=== PATIENT | female | born 2000 | race Caucasian/White ===

== ENCOUNTER 2019-07-11 14:42 | Outpatient (REF) | payer MEDICAID, SELFPAY ==
[2019-07-11 15:52] LABS: *AMPHETAMINES SCREEN URINE Negative (Negative); *BARBITURATES SCREEN URINE Negative (Negative); *BENZODIAZEPINES SCREEN URINE Negative (Negative); Cannabinoids THC POSITIVE (Negative); Cocaine Screen,Urine Negative (Negative); METHADONE URINE SCREEN Negative (Negative); OPIATES URINE SCREEN Negative (Negative)
[2019-07-11 15:57] LABS: Tricyclic Antidepressants Negative (Negative)
[2019-07-11 16:38] LABS: Abs Immature Grans 0.01 k/cumm (0.0-0.09); Absolute Basophil Count 0.01 k/cumm (0.0-0.2); Absolute Eosinophil Count 0.03 k/cumm (0.0-0.7); Absolute Lymphocyte Count 2.53 k/cumm (1.2-3.4); Absolute Monocyte Count 0.69 k/cumm (0.11-0.7); Absolute Neutrophil Count 6.18 k/cumm (1.2-6.7); Basophils % 0.1; Eosinophils % 0.3; HCT 38.3 % (36.0-46.0); HGB 13.4 g/dL (12.0-15.5); Immature Grans % 0.1 %; Lymphocytes % 26.8; Mean Corpuscular Hemoglobin 29.8 pg (27.0-33.0); Mean Corpuscular Volume 85.3 fL (80-95); Mean Platelet Volume 11.5 fL (8.0-11.0); Monocytes % 7.3; Neutrophils % 65.4; Platelet Count 235 x1000/uL (130-400); RBC 4.49 m/cumm (4.00-5.20); RBC Distribution Width 12.5 % (11.7-14.6); White Blood Cell Count 9.45 k/cumm (4.4-10.8)
[2019-07-12 10:53] LABS: Hepatitis B Surface Ag Negative (Negative); Hepatitis C Ab w Rflx HCV PCR Negative (Negative)
[2019-07-12 11:06] LABS: HIV-1/2 Ag & Ab Screen Negative (Negative)
[2019-07-12 13:00] LABS: Rubella IgG Ab (UVM) Positive (See Note); Varicella IgG Antibody Positive (See Note)
[2019-07-12 14:26] LABS: Chlamydia Result Negative (Negative); GC Result Negative (Negative)
[2019-07-13 11:02] LABS: Syphilis Total Ab w/Reflex Nonreactive (Nonreactive)
[2019-07-16 07:40] LABS: Buprenorphine Negative; Norbuprenorphine Negative
== END 2019-07-11 15:02 ==
LOC: LBN 14:42
PROVIDERS: Visit Provider Advanced Practice Midwife
DX: Z34.91 Encounter for supervision of normal pregnancy, unspecified, first trimester (principal); Z11.4 Encounter for screening for human immunodeficiency virus [HIV]; Z11.59 Encounter for screening for other viral diseases; Z01.84 Encounter for antibody response examination; Z11.3 Encounter for screening for infections with a predominantly sexual mode of transmission
CPT/HCPCS: 80307; 82950; 86787; 86803; 86850; 86900; 86901; 87077; 87340; 87389; 87491; 87591; 84443; 85025; 86762; 86780; 87086; 87186

== ENCOUNTER 2019-07-11 19:18 | Outpatient (REF) | payer MEDICAID, SELFPAY | END 2019-07-11 19:38 | LOC: LBN 19:18 | PROVIDERS: Visit Provider Advanced Practice Midwife | DX: R69 Illness, unspecified (principal) ==

== ENCOUNTER 2019-07-26 16:18 | Outpatient (REF) | payer MEDICAID, SELFPAY | END 2019-07-26 16:38 | LOC: LBN 16:18 | PROVIDERS: Visit Provider Advanced Practice Midwife | DX: R10.2 Pelvic and perineal pain (principal); R82.998 Other abnormal findings in urine | CPT/HCPCS: 87086 ==

== ENCOUNTER 2019-07-27 02:15 | Outpatient (CLI) | payer MEDICAID, SELFPAY ==
--- NOTE | 2019-07-27 10:20 | DI.US_ITS ---
EXAM: US OB 2-3 TRIMESTER CLINICAL HISTORY: , Z34.90 TECHNIQUE: Ultrasound performed using standard protocol. COMPARISON: No exams were available for comparison FINDINGS: Ob ultrasound was performed utilizing 2nd trimester protocol. Examination is very limited technicall y due to the patient's body habitus position. biometry is consistent with gestational age of 18 weeks and an EDC 12/28/2019. Placenta is anterior and fundal with no placenta previa. There is a normal quantity of amniotic fluid. anomaly screen is very limited due to lack of visualization. No gross anomaly identified as per the attached checklist, RVOT not identified. cardiac rate 155 BPM. IMPRESSION: DATA REPOSITORY:
== END 2019-07-27 02:35 ==
PROVIDERS: Visit Provider Advanced Practice Midwife
DX: Z34.92 Encounter for supervision of normal pregnancy, unspecified, second trimester (principal); Z3A.18 18 weeks gestation of pregnancy
CPT/HCPCS: 76805

== ENCOUNTER 2019-09-15 04:03 | Outpatient (CLI) | payer MEDICAID, SELFPAY ==
--- NOTE | 2019-09-15 08:24 | DI.US_ITS ---
EXAM: US OB F/U FACIAL/LVOT/RVOT CLINICAL HISTORY: Anatomy not seeN,Z34.90. TECHNIQUE: Transabdominal obstetrical ultrasound performed. COMPARISON: US US OB 2-3 TRIMESTER from 07/27/2019 FINDINGS: Transabdominal obstetrical ultrasound performed. FINDINGS: Number of fetuses: One. position: Cephalic. heart rate: 141 bpm. Placental location: Fundal and to the left. No evidence of previa. ANATOMICAL SURVEY: Right ventricular outflow tract was visualized and is unremarkable. IMPRESSION: Single live intrauterine gestation as above. DATA REPOSITORY:
== END 2019-09-15 04:23 ==
PROVIDERS: Visit Provider Obstetrics & Gynecology
DX: Z34.90 Encounter for supervision of normal pregnancy, unspecified, unspecified trimester (principal)
CPT/HCPCS: 76815

== ENCOUNTER 2019-09-21 17:32 | Observation (INO) | payer MEDICAID, SELFPAY ==
[2019-09-21 18:38] LABS: Abs Immature Grans 0.04 10^3/uL (0.0-0.06); Absolute Basophil Count 0.01 10^3/uL (0.0-0.2); Absolute Eosinophil Count 0.04 10^3/uL (0.0-0.7); Absolute Lymphocyte Count 2.66 10^3/uL (1.2-3.4); Absolute Monocyte Count 0.58 10^3/uL (0.1-0.8); Basophils % 0.1; Eosinophils % 0.4; HCT 37.5 % (36.0-46.0); HGB 12.6 g/dL (11.2-15.7); Immature Grans % 0.4; Lymphocytes % 24.3; MCH 29.8 pg (27.0-33.0); MCHC 33.6 % (32.0-36.0); MCV 88.7 fL (80-95); MPV 11.3 fL (8.0-11.0); Monocytes % 5.3; Neutrophils % 69.5; Platelet Count 197 10^3/uL (130-400); RBC 4.23 10^6/uL (3.93-5.22); RDW 12.9 % (11.7-14.6); RDW-SD 41.3 fL; WBC 10.94 10^3/uL (4.4-10.8)
[2019-09-21 18:55] LABS: ALT 21 U/L (14-59); AST 31 U/L (15-37); Alkaline Phosphatase 76 U/L (46-116); BUN 7 mg/dL (7-18); Bilirubin, Total 0.2 mg/dL (0.2-1.0); CREATININE 0.66 mg/dL (0.55-1.02); Calcium 8.7 mg/dL (8.5-10.1); Chloride 101 mmol/L (98-107); Glucose 92 mg/dL (74-106); Potassium 3.3 mmol/L (3.5-5.1); Sodium 136 mmol/L (136-145); Total Protein 7.3 g/dL (6.4-8.2)
[2019-09-21 19:13] LABS: COMMENT (LAB VIEW ONLY) 138.29 mg/dL; PROTEIN 12.1 mg/dL; Prot/Crea Ur Ratio 0.08
--- NOTE | 2019-09-21 20:09 | HPE_ITS ---
Date of service: 09/21/19 Time of Service: 20:09 Assessment and Plan Assessment and plan (1) Gestational hypertension: Status: Acute Assessment and plan: Will place on observation overnight. Will administer betamethasone 12mg for lung maturity. If blood pressures reenter severe range will consider her severe preeclampsia and start magnesium sulfate. At this point will opt to simply monitor blood pressures and treat severe range accordingly. Consider transfer to tertiary facility if Dx of severe preeclampsia is made. History of Present Illness History of Present Illness Chief Complaint: Gestational hypertension rule out preeclampsia Narrative: 19 year old @ 26 weeks gestation presents with complaint of headache, abdominal pain and elevated blood pressure at home. She has been monitoring her blood pressures with a home blood pressure cuff and noted a BP to 150s/100. On admission her blood pressure was noted to be 170/100 with repeat 160/100. She was given a single dose of 20 mg of IV labetalol. Post labetalol her blood pressure dropped to 148/90. Laboratory studies were normal on admission. Review of Systems All systems reviewed & are unremarkable except as noted in HPI and below PFSH Medical History (Updated 09/21/19 @ 20:15 by Terry Mares MD) Back pain (Acute) S/P spinal fracture, chiropractic in the past History of spinal fracture (Acute) playing football Obesity (Chronic) bmi 47 Surgical History (Updated 07/11/19 @ 14:02 by Vonda Benavides CNM) Previous section (Chronic) S/P cholecystectomy (Acute) Family History (Updated 07/11/19 @ 15:07 by Vonda Benavides CNM) Mother Diabetes Heart disease CHF, age 55 Kidney failure Alcohol abuse Thyroid condition Maternal Grandmother Heart disease CHF, age 50s. 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 Date GA/Weeks # Outcome Route Wgt Sex Labor Lgth Anesthes ia Location Prov [facility] 08/28/17 34 Successful 7 lb 3 oz Male [place] Delivery Date: 08/28/17 34 weeks, for placental abruption general anesthesia, IOL for severe preeclampsia. Labetalol PO after delivery x 4 weeks. Vonda Benavides Medkem Home Medications and Allergies Home Medications Medication Instructions Recorded Confirmed Type vitamins no.119-iron 1 tab PO DAILY tab 07/26/19 09/15/19 History fumarate 29 mg-folic acid 1 mg tablet Allergies Allergy/AdvReac Type Severity Reaction Status Date / Time Latex, Natural Rubber Allergy Severe tongue Verified 09/15/19 14:40 gets itchy and get hard to breath. Penicillins Allergy Severe hives and Verified 09/15/19 14:40 swelling Results Labs Result diagrams: 09/21/19 18:30 09/21/19 18:30 Labs: Laboratory Results - last 24 hr 09/21/19 09/21/19 09/21/19 18:30 18:30 18:38 WBC 10.94 H RBC 4.23 Hgb 12.6 Hct 37.5 MCV 88.7 MCH 29.8 MCHC 33.6 RDW 12.9 Plt Count 197 MPV 11.3 H Immature Gran % 0.4 Neutrophils % 69.5 Lymphocytes % 24.3 Monocytes % 5.3 Eosinophils % 0.4 Basophils % 0.1 Absolute Neutrophils 7.60 H Absolute Lymphocytes 2.66 Absolute Monocytes 0.58 Absolute Eosinophils 0.04 Absolute Basophils 0.01 Sodium 136 Potassium 3.3 L Chloride 101 Carbon Dioxide 24.0 Anion Gap 11.0 BUN 7 Creatinine 0.66 Estimated GFR/1.73 m2 >= 60.00 Glucose 92 Calcium 8.7 Total Bilirubin 0.2 AST 31 ALT 21 Alkaline Phosphatase 76 Total Protein 7.3 Albumin 3.0 L Ur Random Creatinine 138.29 U Random Total Protein 12.1 U [place] Prot/Creat Ratio 0.08 COVID-19 Screening Have you,or household,traveled outside [place] in last 14 days?: No
[2019-09-21] MEDS: Betamet Acet/Betamet Na Ph Inj. 30 MG/5 ML 12 MG IM (20:26)
[2019-09-21 20:29] VITALS: BP 160/100
[2019-09-21] MEDS: Labetalol 100 MG/20 ML VIAL (20:29)
[2019-09-21 20:31] VITALS: BP 138/82
[2019-09-21] MEDS: Normal Saline Flush 10 ML SYR IVP (20:32)
--- NOTE | 2019-09-22 08:25 | W.PM.PROGNOT ---
Date of Service Date of service: 09/22/19 Time of Service: 08:25 Assessment and Plan Assessment and plan (1) : Status: Acute (2) Obesity: Status: Chronic (3) Gestational hypertension: Status: Acute Assessment and plan: Patient has appears to be underlying chronic hypertension. She responded to labetalol. Laboratory studies have been normal. She will receive a second dose of betamethasone this evening. If her blood pressures remained stable on oral labetalol, she will be discharged home with close follow-up to be followed with blood pressure check here at the center in 48 hours with a weekly OB visits and serial laboratory studies. Patient understands well the risks of chronic hypertension and superimposed severe preeclampsia. She did deliver her last baby at 34 weeks due to severe preeclampsia as well. Her threshold from delivery is low along with transfer of care to tertiary center as indicated. Subjective Subjective Interval history since last seen: Patient is seen and examined and chart reviewed today. Overnight she was doing well. She denies headache, visual changes, blurry vision. Baby is active. Labs are reviewed and are normal. Blood pressure remains reasonably stable. Exam Const General: cooperative and healthy appearing Nutritional Appearance: obese Orientation: alert and oriented x3 Resp Effort & Inspection: normal respiratory effort Cardio Rate: regular rate Rhythm: regular rhythm Extrem General: no clubbing, cyanosis or edema Objective Objective Clinical Data: Abnormal lab results 09/21/19 09/21/19 Range/Units 18:30 18:30 WBC 10.94 H (4.4-10.8) 10^3/uL MPV 11.3 H (8.0-11.0) fL Absolute Neutrophils 7.60 H (1.2-6.7) 10^3/uL Potassium 3.3 L (3.5-5.1) mmol/L Albumin 3.0 L (3.4-5.0) g/dL Vital Signs Blood Pressure 138/82 09/21/19 20:31 Laboratory Results WBC 10.94 10^3/uL (4.4-10.8) H 09/21/19 18:30 RBC 4.23 10^6/uL (3.93-5.22) 09/21/19 18:30 Hgb 12.6 g/dL (11.2-15.7) 09/21/19 18:30 Hct 37.5 % (36.0-46.0) 09/21/19 18:30 MCV 88.7 fL (80-95) 09/21/19 18: MCH 29.8 pg (27.0-33.0) 09/21/19 18: MCHC 33.6 % (32.0-36.0) 09/21/19 18:30 RDW 12.9 % (11.7-14.6) 09/21/19 18:30 Plt Count 197 10^3/uL (130-400) 09/21/19 18:30 MPV 11.3 fL (8.0-11.0) H 09/21/19 18:30 Immature Gran % 0.4 09/21/19 18:30 Neutrophils % 69.5 09/21/19 18:30 Lymphocytes % 24.3 09/21/19 18:30 Monocytes % 5.3 09/21/19 18:30 Eosinophils % 0.4 09/21/19 18: Basophils % 0.1 09/21/19 18:30 Absolute Neutrophils 7.60 10^3/uL (1.2-6.7) H 09/21/19 18:30 Absolute Lymphocytes 2.66 10^3/uL (1.2-3.4) 09/21/19 18: Absolute Monocytes 0.58 10^3/uL (0.1-0.8) 09/21/19 18:30 Absolute Eosinophils 0.04 10^3/uL (0.0-0.7) 09/21/19 18: Absolute Basophils 0.01 10^3/uL (0.0-0.2) 09/21/19 18:30 Sodium 136 mmol/L (136-145) 09/21/19 18:30 Potassium 3.3 mmol/L (3.5-5.1) L 09/21/19 18:30 Chloride 101 mmol/L (98-107) 09/21/19 18:30 Carbon Dioxide 24.0 mmol/L (21.0-32.0) 09/21/19 18:30 Anion Gap 11.0 mmol/L (3-11) 09/21/19 18:30 BUN 7 mg/dL (7-18) 09/21/19 18:30 Creatinine 0.66 mg/dL (0.55-1.02) 09/21/19 18:30 Estimated GFR/1.73 m2 >= 60.00 (mL/min/1.73m2) 09/21/19 18:30 Glucose 92 mg/dL (74-106) 09/21/19 18:30 Calcium 8.7 mg/dL (8.5-10.1) 09/21/19 18:30 Total Bilirubin 0.2 mg/dL (0.2-1.0) 09/21/19 18:30 AST 31 U/L (15-37) 09/21/19 18:30 ALT 21 U/L (14-59) 09/21/19 18:30 Alkaline Phosphatase 76 U/L (46-116) 09/21/19 18:30 Total Protein 7.3 g/dL (6.4-8.2) 09/21/19 18:30 Albumin 3.0 g/dL (3.4-5.0) L 09/21/19 18:30 Ur Random Creatinine 138.29 mg/dL 09/21/19 18:38 U Random Total Protein 12.1 mg/dL 09/21/19 18:38 U [place] Prot/Creat Ratio 0.08 09/21/19 18:38
[2019-09-22 09:00] VITALS: BP 122/77; PULSE 69; RESP 20; TEMP 36.7; O2SAT 97
[2019-09-22] MEDS: Labetalol 100 MG TAB PO (09:14)
[2019-09-22] MEDS: Aspirin 81 MG CHEW PO (10:44)
[2019-09-22 11:50] VITALS: BP 100/62; PULSE 78; RESP 20; TEMP 36.4; O2SAT 97
[2019-09-22 15:50] VITALS: BP 124/55; PULSE 81; RESP 20; TEMP 36.4; O2SAT 96
[2019-09-22] MEDS: Betamet Acet/Betamet Na Ph Inj. 30 MG/5 ML 12 MG IM (18:14)
== END 2019-09-22 18:35 | disposition home or self-care (01) ==
LOC: OBS 18:15
PROVIDERS: Admitting Provider Obstetrics & Gynecology; Visit Provider Obstetrics & Gynecology
DX: O13.2 Gestational [pregnancy-induced] hypertension without significant proteinuria, second trimester (principal); Z3A.26 26 weeks gestation of pregnancy
CPT/HCPCS: 80053; 96372; 99223; 99232; 59025; 82565; 84156; 85025; G0378; J0702

== ENCOUNTER 2019-09-24 11:59 | Outpatient (CLI) | payer MEDICAID, SELFPAY | END 2019-09-24 12:19 | PROVIDERS: Visit Provider Obstetrics & Gynecology | DX: O10.012 Pre-existing essential hypertension complicating pregnancy, second trimester (principal); Z3A.26 26 weeks gestation of pregnancy | CPT/HCPCS: 99211 ==

== ENCOUNTER 2019-10-04 03:18 | Outpatient (CLI) | payer MEDICAID, SELFPAY ==
[2019-10-04 16:05] LABS: Glucose,1 Hr (Glucola) 95 mg/dL (80-140)
[2019-10-04 16:07] LABS: Abs Immature Grans 0.06 10^3/uL (0.0-0.06); Absolute Basophil Count 0.03 10^3/uL (0.0-0.2); Absolute Eosinophil Count 0.03 10^3/uL (0.0-0.7); Absolute Lymphocyte Count 2.32 10^3/uL (1.2-3.4); Absolute Monocyte Count 0.73 10^3/uL (0.1-0.8); Basophils % 0.2; Eosinophils % 0.2; HCT 38.5 % (36.0-46.0); HGB 12.8 g/dL (11.2-15.7); Immature Grans % 0.5; Lymphocytes % 18.5; MCHC 33.2 % (32.0-36.0); MCV 90.4 fL (80-95); MPV 11.3 fL (8.0-11.0); Monocytes % 5.8; Neutrophils % 74.8; Nucleated RBC 0 %; Platelet Count 235 10^3/uL (130-400); RBC 4.26 10^6/uL (3.93-5.22); RDW 12.9 % (11.7-14.6); RDW-SD 42.1 fL; WBC 12.52 10^3/uL (4.4-10.8)
[2019-10-04 16:08] LABS: Absolute Neutrophil Count 9.36 10^3/uL (1.2-6.7)
== END 2019-10-04 03:38 ==
PROVIDERS: Obstetrics & Gynecology; Visit Provider Obstetrics & Gynecology Gynecology
DX: Z34.90 Encounter for supervision of normal pregnancy, unspecified, unspecified trimester (principal)
CPT/HCPCS: 36415; 82950; 85025

== ENCOUNTER 2019-10-27 04:32 | Outpatient (CLI) | payer MEDICAID, SELFPAY ==
--- NOTE | 2019-10-27 07:30 | DI.US_ITS ---
EXAM: US OB EDWIN WEIGHT CLINICAL HISTORY: Z34.83, OBESITY, GEST HTN, O13.9. TECHNIQUE: Transabdominal obstetrical ultrasound performed. COMPARISON: US US OB F/U FACIAL/LVOT/RVOT from 09/15/2019 FINDINGS: Transabdominal obstetrical ultrasound performed. FINDINGS: Number of fetuses: One. position: Cephalic Placental location: Fundal and to the left. No evidence of previa. BIOMETRIC DATA: EFW: 1894 grms 60% Composite Age: 32 weeks 2 days EDC: 12/20/2019 Heart Rate: 144BPM Amniotic fluid index: 14 cm. Visually, amount of fluid is within normal limits. IMPRESSION: 1. Single live intrauterine gestation as above. 2. Estimated weight is 1894gms. 3. Amniotic fluid index is 14 cm. Visually within normal limits. DATA REPOSITORY:
== END 2019-10-27 04:52 ==
PROVIDERS: Visit Provider Obstetrics & Gynecology Gynecology
DX: Z34.83 Encounter for supervision of other normal pregnancy, third trimester (principal); O13.3 Gestational [pregnancy-induced] hypertension without significant proteinuria, third trimester
CPT/HCPCS: 76816

== ENCOUNTER 2019-11-23 14:44 | Outpatient (REF) | payer MEDICAID, SELFPAY ==
[2019-11-23 17:45] LABS: *AMPHETAMINES SCREEN URINE Negative (Negative); *BARBITURATES SCREEN URINE Negative (Negative); *BENZODIAZEPINES SCREEN URINE Negative (Negative); Cannabinoids THC Negative (Negative); Cocaine Screen,Urine Negative (Negative); METHADONE URINE SCREEN Negative (Negative); OPIATES URINE SCREEN Negative (Negative)
[2019-11-23 17:50] LABS: Tricyclic Antidepressants Negative (Negative)
[2019-11-30 11:59] LABS: Buprenorphine Negative; Norbuprenorphine Negative
== END 2019-11-23 15:04 ==
LOC: LBN 14:44
PROVIDERS: Visit Provider Obstetrics & Gynecology
DX: Z34.93 Encounter for supervision of normal pregnancy, unspecified, third trimester (principal); Z36.85 Encounter for antenatal screening for Streptococcus B
CPT/HCPCS: 80307; 87081

== ENCOUNTER 2019-11-27 07:03 | Inpatient (IN) | payer MEDICAID, SELFPAY ==
[2019-11-27] VITALS (10 sets, daily range): BP systolic 122–149; BP diastolic 57–86; PULSE 50–97; RESP 16–18; TEMP 36.6–36.8; O2SAT 98–100
--- NOTE | 2019-11-27 07:57 | W.PM.HP.N ---
Date of service: 11/27/19 Time of Service: 07:57 Assessment and Plan Assessment and plan (1) PROM (premature rupture of membranes): Start date: 11/27/19 Start time: 06:30 Status: Acute Assessment and plan: SROM at 35 6/7 weeks gestation. Prior section. Will proceed with repeat section (2) Gestational hypertension: Status: Acute Assessment and plan: Stable on Labetaol (3) Previous section: Status: Chronic Assessment and plan: Risk, benefit and alternatives of C/S explained, full informed consent obtained (4) Obesity: Status: Chronic Assessment and plan: 2 IV's for OR History of Present Illness History of Present Illness Chief Complaint: SROM at 6:00 am, gush, clear fluid Narrative: Pt is a 19 year old who has has care at [facility]. Prior section. Patients risk factor is obesity.She also has chronic hypertension, on Labetalol. Good movement, no bleeding, no trauma. Otherwise feeling well Review of Systems Narrative: Good movement, Gush of clear fluid Constitutional Constitutional: Denies chills, Denies fever(s) and Denies night sweats Eyes Eyes: Reports system reviewed and no additional complaints, except as documented Cardiovascular Cardiovascular: Reports system reviewed and no additional complaints, except as documented Respiratory Respiratory: Reports system reviewed and no additional complaints, except as documented Gastrointestinal Gastrointestinal: Reports system reviewed and no additional complaints, except as documented and Denies abdominal pain Genitourinary Genitourinary: Reports as per HPI Musculoskeletal Musculoskeletal: Reports system reviewed and no additional complaints, except as documented Integumentary/Breasts Skin/Breast: Reports system reviewed and no additional complaints, except as documented Neurologic Neurologic: Reports system reviewed and no additional complaints, except as documented Psychiatric Psychiatric: Reports system reviewed and no additional complaints, except as documented PFSH Medical History (Updated 11/27/19 @ 08:07 by Amanda Coronado DO) Back pain S/P spinal fracture, chiropractic in the past Gestational hypertension 09/2019. ASA daily. Labetalol 100mg BID. u/s for growth q4w beginning 28w. History of spinal fracture playing football Obesity bmi 47 PROM (premature rupture of membranes) Surgical History (Updated 07/11/19 @ 14:02 by Vonda Benavides CNM) Previous section S/P cholecystectomy Family History (Updated 07/11/19 @ 15:07 by Vonda Benavides CNM) Mother Diabetes Heart disease CHF, age 55 Kidney failure Alcohol abuse Thyroid condition Maternal Grandmother Heart disease CHF, age 50s. Diabetes Kidney failure Social History (Updated 10/04/19 @ 15:18 by Radha Joya MD) Smoking/Tobacco Use Status: Never Second Hand Exposure: No Alcohol Intake: former Year quit: 2019 Details: quit with Substance use type: marijuana Details: quit with Household members: significant other and other Details: S-Boyce. 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 Date GA/Weeks # Outcome Route Wgt Sex Labor Lgth Anesthesia Location [facility] 08/28/17 34 Successful 7 lb 3 oz Male [facility] Delivery Date: 08/28/17 34 weeks, for placental abruption general anesthesia, IOL for severe preeclampsia. Labetalol PO after delivery x 4 weeks. Vonda Benavides Meds Home Medications and Allergies Home Medications Medication Instructions Recorded Confirmed Type vitamins no.119-iron 1 tab PO DAILY tab 07/26/19 11/27/19 History fumarate 29 mg-folic acid 1 mg tablet aspirin 81 mg PO DAILY #100 tab 09/22/19 11/27/19 Rx labetalol 100 mg PO BID #60 tab 09/22/19 11/27/19 Rx Allergies Allergy/AdvReac Type Severity Reaction Status Date / Time Latex, Natural Rubber Allergy Severe tongue Verified 10/27/19 11:48 gets itchy and get hard to breath. Penicillins Allergy Severe hives and Verified 10/27/19 11:48 swelling Exam Const General: cooperative, comfortable and no acute distress Nutritional Appearance: obese Orientation: oriented x3 HENMT Head: normal to inspection Eyes General: appearance normal, both eyes and all related structures Neck Neck: normal visual inspection and full ROM Resp Effort & Inspection: normal respiratory effort Auscultation: clear to auscultation bilaterally, no rales, no rhonchi and no wheezes Cardio Palpation: normal PMI Rate: regular rate Rhythm: regular rhythm Heart Sounds: S1 normal, S2 normal and no murmurs GI Inspection: normal to inspection Other: large panus Manual OB Exam: not dilated, not effaced and station high Amniotic Fluid: clear Other: +ROM pplus, Grossly ruptured Skin General skin exam: no rashes or lesions noted Neuro General: patient oriented x3 Cognition: normal cognition Speech: speech normal Gait: normal gait Extrem General: no clubbing, cyanosis or edema Results Labs Result diagrams: 11/27/19 07:03 Last Vital Signs Temp 98.2 F 11/27/19 07:44 Pulse 97 H 11/27/19 07:44 Resp 18 11/27/19 07:44 BP 124/84 11/27/19 07:44 COVID-19 Screening Have you,or household,traveled outside [place] in last 14 days?: No
[2019-11-27 08:04] LABS: ROM Plus Positive
[2019-11-27] MEDS: Sodium Citrate 30 ML CUP PO (08:36)
[2019-11-27] MEDS: CLINDAMYCIN 900 MG/50 ML BAG 50 MG IVPB (08:41)
[2019-11-27 08:45] LABS: HCT 37.2 % (36.0-46.0); HGB 12.7 g/dL (11.2-15.7); MCH 30.2 pg (27.0-33.0); MCHC 34.1 % (32.0-36.0); MCV 88.4 fL (80-95); MPV 11.3 fL (8.0-11.0); Platelet Count 208 10^3/uL (130-400); RBC 4.21 10^6/uL (3.93-5.22); RDW 12.9 % (11.7-14.6); RDW-SD 41.2 fL; WBC 10.18 10^3/uL (4.4-10.8)
[2019-11-27] MEDS: Lactated Ringers 1,000 ML 200 ML IV (09:04)
--- NOTE | 2019-11-27 09:57 | PLAC_PTH ---
PATIENT: Natividad Waller LOC: OBS U#:[id number] AGE/SX: 19/F ROOM: OBS.304 RE11/27/[address]: Amanda Coronado DO : 2000 BED: A DIS: 11/27/2019 SPEC #: [id number] RECD: 11/27/19 13:06 STATUS: JOSSELIN REQ #: [id number] DEDRA: 11/27/19 09:[address]: Amanda Coronado DEPT: Surgical Specimen RECD BY: Jossy Mccann ENTERED: 11/27/19 13:06 SP TYPE: PLAC OTHR DR: None Tissues: 1 - PLACENTA (3RD TRIMESTER) 2 - PERITONEUM/ABBY BIOPSY Procedures: GROSS AND MICRO LEVEL 4 GROSS AND MICRO LEVEL 5 Comments: [id number]
[2019-11-27] MEDS: Oxytocin/Normal Saline 30 UNIT/500 ML BAG 334 UNITS IV (10:15)
[2019-11-27] MEDS: Bupivacaine 0.25% Pres-Free 30 ML VIAL (10:29)
--- NOTE | 2019-11-27 10:59 | PDOC.OPNB_ITS ---
Date of service: 11/27/19 Time of Service: 10:59 Operative Note Operative Note Delivery Method: Unscheduled Category: Urgent DATE OF PROCEDURE: 11/27/19 PRE-OP DIAGNOSES: at 35-6/7 weeks gestation, PROM, prior c/s,htn POST-OP DIAGNOSES: same PROCEDURE: Repeat low transverse section SURGEON: Amanda Coronado Od Grinder Operator: Radha Joya Anesthesia: spinal Estimated blood loss (mL): 400 Pathology: other (placenta, peritoneal adhesions) Complications: None Patient was transported to: floor Patient's condition: stable Indications: #1Pregnancy at 35-6/7 weeks gestation #2 rupture of membranes #3 prior section #4 chronic hypertension Findings: Delivery of a viable male infant from the vertex position, normal- appearing tubes, ovaries, uterus. Peritoneal inclusions removed, sent to pathology Procedure Description: Patient is a 19-year-old 2 para 1 with a history of delivery at 34 weeks after failed induction for severe preeclampsia. She had care that was essentially uncomplicated with [facility]. She has been on labetalol for chronic hypertension. She called this morning with spontaneous rupture of membranes for clear fluid approximately 6:15 AM. On presentation to the hospital she was confirmed rupture with a category 1 heart rate tracing and not in active labor. Due to her previous section she underwent a repeat low-transverse section. Risk benefits and alternatives procedure have been explained to the patient full informed consent was obtained. She is taken the operating suite with an IV running where she is placed in the seated position. Spinal anesthesia administered tested and found be adequate. She is placed in dorsal supine position with leftward tilt and prepped and draped in usual sterile fashion including vaginal prep. Lynn catheter had been inserted for drainage of clear yellow urine and pneumatic compression stockings had been placed. She did receive preoperative IV antibiotics including clindamycin and gentamicin prophylactically. Her prior group B strep culture was negative. Pfannenstiel skin incision was made through previous Pfannenstiel scar carried down to the underlying fascia. Fascia was nicked in the midline and fascial incision extended laterally. The peritoneum identified tented up and entered sharply and the peritoneal incision then extended superiorly and inferiorly. Bladder blade was inserted and the vesicouterine peritoneum identified tented up and meticulously sharply dissected off the lower uterine segment. Scalpel was used to make a low transverse uterine incision and extended bluntly laterally. Fluid remained clear at that point vertex was delivered through the incision atraumatically. Shoulders followed with ease. Three-vessel cord was noted clamped x2 and cut and the infant was handed off to the waiting pediatric group. At this point placenta was expressed, uterus exteriorized and cleared of all clot and debris. At this point uterine incision was closed using 0 Monocryl suture in a running locked fashion initially it with a second imbricating layer over the top. On inspection there were noted to be peritoneal inclusions which were sharply dissected and sent to pathology. At this point uterine incision was inspected found to be hemostatic. Uterus was returned to the abdomen and again uterine incision inspected and found to be hemostatic. The peritoneal incision was closed using 3-0 Vicryl suture and fascial incision closed using 0 Vicryl suture in a running fashion. Subcutaneous tissue was then irrigated with copious amounts of normal saline found to be hemostatic. Subcu tissue was reapproximated in a simple interrupted fashion and the skin edge closed with 4-0 Monocryl in a subcuticular fashion. Mastisol and Steri-Strips were placed dressing was covered and patient at that point was stable. Taken the floor in stable condition with Lynn catheter draining clear yellow urine. EBL: 400 mL Urine output: 300 mL Complications: None apparent
[2019-11-27] MEDS: Normal Saline Flush 10 ML SYR IVP ×2 (11:15→16:05)
[2019-11-27] MEDS: Acetaminophen 325 MG TAB 650 MG PO (14:18)
[2019-11-27] MEDS: Ketorolac 30 MG/ML VIAL IVP (16:02)
--- NOTE | 2019-11-27 16:19 | DSE_ITS ---
Date of service: 11/27/19 Time of Service: 16:19 DS: Diagnosis Discharge Diagnosis (1) PROM (premature rupture of membranes): Status: Acute (2) Gestational hypertension: Status: Acute (3) Previous section: Status: Chronic (4) Obesity: Status: Chronic Discharge Plan Disposition Patient Disposition: [facility] Condition: Fair Discharge Details Reason For Visit: R/O SROM Admit Date/Time: 11/27/19 08:35 Admit Provider: Amanda Coronado Attending Provider: Amanda Coronado Primary Care Provider: None,None Hospital Course Hospital Course: Patient is a 19-year-old 2 para 1 with a history of delivery at 34 weeks after failed induction for severe preeclampsia. She had care that was essentially uncomplicated with women's wellness. She has been on labetalol for chronic hypertension. She called this morning with spontaneous rupture of membranes for clear fluid approximately 6:15 AM. On presentation to the hospital she was confirmed rupture with a category 1 heart rate tracing and not in active labor. She been counseled during this and has requested a repeat delivery. This morning she underwent an scheduled repeat low-transverse section with delivery of a male infant weight: 2415gm, Apgars 8/8. He will be named Bijan. Postop she has done well, minimal abdominal pain, no GI issues. Has been OOB this afternoon in the nursery where her infant has been since delivery. Because of continued oxygen requirement the infant will be transfered to [facility] for an increased level of care. Pt has requested that she be transferred for care to [facility] to have closer proximity to her infant. I have checked with Care Management team who do not feel that it would be an issue with her insurance carrier. I spoke with Dr. Faina Cotton who has accepted the pt to the [facility] service. Home Meds and New Rx's Prescriptions: No Action PNV 119-iron fum-folic acid 29 mg iron- 1 mg tablet 1 tab PO DAILY RF: 0 aspirin 81 mg Tablet,Chewable 81 mg PO DAILY Qty: 100 RF: 0 labetalol 100 mg Tablet 100 mg PO BID Qty: 60 RF: 3 Discharge Instructions Care Plan Goals: Transfer to [facility] via ambulance to be in closer proximity to . Activity:: Activity as Tolerated Diet:: As Tolerated Discharge Orders Discharge Orders: Discharge Order (Routine); Ordered 11/27/19 Ordered By: Radha Joya OB:DS Summary Contraception Discussed Contraception Discussed: No, Infant Gender-Baby A: Male weight: 5 lb 5.187 oz Status at Discharge Functional status at discharge: independent ambulation Overall status at discharge: patient is not back to baseline Mental Status: mental status grossly normal Speech and Movement: speech and movement normal Mood: congruent mood Affect: normal affect Exam Physical Exam Vital signs: Temp Pulse Resp BP Pulse Ox 98.1 F 78 18 122/79 99 11/27/19 14:05 11/27/19 14:05 11/27/19 14:05 11/27/19 14:05 11/27/19 14:05 Vital Signs Reviewed: Yes Constitutional Constitutional: no acute distress HEENT Exam HEENT Exam: Not Done Neck Exam Neck Exam: Normal Respiratory Exam Respiratory Exam: Normal Cardiovascular Exam Cardiovascular Exam: Normal Abdominal Exam Abdomen: Tender (At incision line) Fundal Exam Fundus: Below Umbilicus Rectal Exam Rectal Exam: Not Done Extremities Exam Extremity Exam: Normal and Full ROM Back/Spine/Pelvis Exam Back Exam: Normal Skin Exam Skin Exam: Normal Neurological Exam Neurological Exam: Normal Psychiatric Exam Psychiatric Exam: Normal [facility] Medical History (Updated 11/27/19 @ 08:07 by Amanda Coronado DO) Back pain S/P spinal fracture, chiropractic in the past Gestational hypertension 09/2019. ASA daily. Labetalol 100mg BID. u/s for growth q4w beginning 28w. History of spinal fracture playing football Obesity bmi 47 PROM (premature rupture of membranes) Surgical History (Updated 11/27/19 @ 10:55 by Radha Joya MD) Previous section 11/27/19 RC/S SROM 35+w EGA. M. Bijan S/P cholecystectomy Family History (Updated 07/11/19 @ 15:07 by Vonda Benavides CNM) Mother Diabetes Heart disease CHF, age 55 Kidney failure Alcohol abuse Thyroid condition Maternal Grandmother Heart disease CHF, age 50s. Diabetes Kidney failure Social History (Updated 10/04/19 @ 15:18 by Radha Joya MD) Smoking/Tobacco Use Status: Never Second Hand Exposure: No Alcohol Intake: former Year quit: 2019 Details: quit with Substance use type: marijuana Details: quit with Household members: significant other and other Details: Chana. 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 Date GA/Weeks # Outcome Route Wgt Sex Labor Lgth Anesthes ia Location [facility] 08/28/17 34 Successful 7 lb 3 oz Male [facility] Delivery Date: 08/28/17 34 weeks, for placental abruption general anesthesia, IOL for severe preeclampsia. Labetalol PO after delivery x 4 weeks. Vonda Benavides DS: Data Vitals/I&O Vitals and I&O: Vital Signs Temperature 98.1 F 11/27/19 14:05 Pulse 78 11/27/19 14:05 Pulse Rhythm Regular 11/27/19 08:24 Respiratory Rate 18 11/27/19 14:05 Blood Pressure 122/79 11/27/19 14:05 Blood Pressure Mean 93 11/27/19 14:05 Pulse Oximetry 99 11/27/19 14:05 Oxygen Delivery Method Room Air 11/27/19 07:44 Oxygen Flow Rate 0 11/27/19 07:44 Pain Level 5 11/27/19 16:02 Comment 11/27/19 14:05 Intake & Output 11/26/19 11/27/19 11/27/19 23:59 11:59 23:59 Intake Total 930 / 1663 733 / 1663 Output Total 700 / 700 Balance 230 / 963 733 / 963 Weight 340 lb Intake: IV 930 / 1663 733 / 1663 Output: Urine 300 / 300 Estimated Blood Loss 400 / 400 Other: Urine Color Yellow Urine Appearance Clear Data Completed and Pending Labs on day of discharge: Labs from last 24 hours 11/27/19 11/27/19 11/27/19 08:10 08:10 08:00 WBC 10.18 RBC 4.21 Hgb 12.7 Hct 37.2 MCV 88.4 MCH 30.2 MCHC 34.1 RDW 12.9 Plt Count 208 MPV 11.3 H Membranes Rupture COVID-19 PCR Pending Nasopharyn COVID-19 PCR Pending Ref Test Perform Site Pending Patient ABO/Rh A Positive Antibody Screen Negative 11/27/19 11/27/19 08:00 07:40 WBC RBC Hgb Hct MCV MCH MCHC RDW Plt Count MPV Membranes Rupture Positive COVID-19 PCR Cancelled Nasopharyn COVID-19 PCR Cancelled Ref Test Perform Site Cancelled Patient ABO/Rh Antibody Screen
[2019-11-27] MEDS: MORPHine 2 MG/ML SYR 1 MG IVP (17:10)
[2019-11-27] MEDS: oxyCODONE 5 mg/Acetaminophen 325 mg TAB PO (17:13)
[2019-11-27] MEDS: Lactated Ringers 1,000 ML 125 ML IV (17:14)
[2019-11-27 22:51] LABS: COVID-19 RT-PCR UVMMC Result Negative (Negative)
== END 2019-11-27 19:10 | disposition short-term general hospital (02) | DRG 787 ==
PROVIDERS: Obstetrics & Gynecology; Admitting Provider Obstetrics & Gynecology; Visit Provider Obstetrics & Gynecology
PROC: 10D00Z1 Extraction of Products of Conception, Low, Open Approach (ICD-10-PCS; CPT 59514; principal; 2019-11-27 09:15)
DX: O60.14X0 Preterm labor third trimester with preterm delivery third trimester, not applicable or unspecified (principal); O10.02 Pre-existing essential hypertension complicating childbirth; Z37.0 Single live birth; Z3A.35 35 weeks gestation of pregnancy; O34.211 Maternal care for low transverse scar from previous cesarean delivery; O99.214 Obesity complicating childbirth; E66.9 Obesity, unspecified; Z87.51 Personal history of pre-term labor; Z79.82 Long term (current) use of aspirin; Z87.81 Personal history of (healed) traumatic fracture
CPT/HCPCS: 59514; 84112; 85027; 86850; 86900; 86901; 88305; 99222; U0003; 88307; J1580; J1885; J2270; J2370; J2405

== ENCOUNTER 2020-10-25 14:02 | Outpatient (REF) | payer MEDICAID, SELFPAY ==
--- NOTE | 2020-10-25 13:40 | PAPFT_PTH ---
PATIENT: Natividad Waller LOC: [place] U#:[id number] AGE/SX: 20/F ROOM: RE10/25/[address]: PAOLA Bernard : 2000 BED: DIS: 10/25/2020 SPEC #: [id number] RECD: 10/25/20 15:31 STATUS: JOSSELIN REViktoria #: [id number] DEDRA: 10/25/20 13:[address]: Tiny Hernandes DEPT: [facility] Cytology RECD BY: Stefanie Delgado ENTERED: 10/25/20 15:31 SP TYPE: PAPFT OTHR DR: None Tissues: 1 - CX/ENDOCX FOR PAP SMEARS Procedures: PAP THIN PREP/UVM Screening Comments: [id number]
[2020-10-28 14:41] LABS: Chlamydia Result Negative (Negative); GC Result Negative (Negative)
== END 2020-10-25 14:03 | disposition home or self-care (01) ==
LOC: LBN 14:02
PROVIDERS: Visit Provider Nurse Practitioner Family
DX: Z11.3 Encounter for screening for infections with a predominantly sexual mode of transmission (principal); Z12.4 Encounter for screening for malignant neoplasm of cervix
CPT/HCPCS: 87491; 87591; 88142

== ENCOUNTER 2020-10-28 17:07 | Emergency (ER) | payer MEDICAID, SELFPAY ==
[2020-10-28 17:22] VITALS: BP 134/111; PULSE 73; TEMP 36.8; O2SAT 99
--- NOTE | 2020-10-28 17:45 | DI.CT_ITS ---
Exam(s) CT ABDOMEN PELVIS W EXAM: CT ABDOMEN PELVIS W CLINICAL HISTORY: abdominal pain, IUD string is not visible, suprapu. TECHNIQUE: Imaging Protocol: Axial computed tomography images with coronal and sagittal reformatted images were created and reviewed CONTRAST MATERIAL: Intravenous: Omnipaque 350 Contrast volume:100 ml Oral: no COMPARISON: No exams were available for comparison FINDINGS: ABDOMEN: Lung Bases: Normal where visualized. Liver: Normal density. No measurable mass. Gallbladder and biliary tract: Cholecystectomy. No radiodense calculus or dilation. Pancreas: Normal density, no abnormal calcifications or inflammatory process. Spleen: Normal. Kidneys: Normal size, contour and axis. No radiodense stones or obstructive uropathy. No masses seen. Adrenal glands: No masses seen. Abdominal Aorta: Abdominal portion non-dilated. PELVIS: Bladder: Nearly empty. No gross wall thickening. No calculi.No focal mass. Bowel: No obstruction or bowel wall thickening. Appendix normal. Peritoneal cavity: No ascites, collection or mesenteric inflammatory response. Soft tissues: Cesarea n section scar, unremarkable. Small amount of fat at the umbilicus. Bones: Degenerative changes lower thoracic spine.. Reproductive organs: The anteverted uterus with IUD in place. Ovaries unremarkable. Lymph nodes: Unremarkable. Impression: Unremarkable CT scan of the abdomen and pelvis. RADIATION DOSE DELIVERED: 1,882.84mGy.cm Total DLP DATA REPOSITORY: All CT scans at this facility are submitted to the National Radiology Data Registry (NRDR) Dose Index Registry (DIR) with the [employer] (ACR). RADIATION OPTIMIZATION: All CT scans at this facility use at least one of these dose optimization te chniques: automated exposure control; mA and/or kV adjustment per patient size (includes targeted exa ms where dose is matched to clinical indication); or iterative reconstruction.
[2020-10-28 18:04] LABS: Abs Immature Grans 0.02 10^3/uL (0.0-0.06); Absolute Basophil Count 0.03 10^3/uL (0.0-0.2); Absolute Eosinophil Count 0.09 10^3/uL (0.0-0.7); Absolute Lymphocyte Count 3.32 10^3/uL (1.2-3.4); Absolute Neutrophil Count 4.63 10^3/uL (1.2-6.7); Basophils % 0.3; HCT 42.5 % (36.0-46.0); HGB 13.9 g/dL (11.2-15.7); Immature Grans % 0.2; Lymphocytes % 38.6; MCH 28.8 pg (27.0-33.0); MCHC 32.7 % (32.0-36.0); MPV 11.8 fL (8.0-11.0); Monocytes % 5.8; Neutrophils % 54.1; Nucleated RBC 0 %; Platelet Count 254 10^3/uL (130-400); RBC 4.83 10^6/uL (3.93-5.22); RDW 12.8 % (11.7-14.6); RDW-SD 41.3 fL; WBC 8.59 10^3/uL (4.4-10.8)
[2020-10-28] MEDS: Ondansetron 4 MG/2 ML VIAL IVP (18:04)
[2020-10-28] MEDS: Omnipaque 350 MG/ML 100 ML BTL IJ (18:13)
[2020-10-28] MEDS: Normal Saline Flush 10 ML SYR IVP (18:14)
[2020-10-28 18:30] LABS: Lipase 184 U/L (73-393)
[2020-10-28 18:32] LABS: ALT 29 U/L (14-59); AST 41 U/L (15-37); Alkaline Phosphatase 72 U/L (46-116); Anion Gap 7.4 mmol/L (3-11); BUN 12 mg/dL (7-18); Bilirubin, Total 0.4 mg/dL (0.2-1.0); CO2 27.6 mmol/L (21.0-32.0); CREATININE 0.7 mg/dL (0.55-1.02); Calcium 9.5 mg/dL (8.5-10.1); Chloride 104 mmol/L (98-107); Glucose 93 mg/dL (74-106); Potassium 3.9 mmol/L (3.5-5.1); Sodium 139 mmol/L (136-145); Total Protein 8.6 g/dL (6.4-8.2)
--- NOTE | 2020-10-28 18:43 | DI.VRAD_ITS ---
PROCEDURE INFORMATION: Exam: CT Abdomen And Pelvis With Contrast Exam date and time: 10/28/2020 5:58 PM Age: 20 years old Clinical indication: Abdominal pain TECHNIQUE: Imaging protocol: Computed tomography of the abdomen and pelvis with contrast. COMPARISON: SD US OB EDWIN WEIGHT 10/27/2019 11:17 AM FINDINGS: Lungs: The visualized lung bases are clear. Liver: Normal. No mass. Gallbladder and bile ducts: Cholecystectomy. Pancreas: Normal. No ductal dilation. Spleen: Normal. No splenomegaly. Adrenal glands: Normal. No mass. Kidneys and ureters: Normal. No hydronephrosis. Stomach and bowel: Unremarkable. No obstruction. No mucosal thickening. Appendix: Appendix is normal in caliber. No periappendiceal edema. No findings to suggest acute appendicitis. Intraperitoneal space: Unremarkable. No free air. No significant fluid collection. Vasculature: Unremarkable. No abdominal aortic aneurysm. Lymph nodes: Unremarkable. No enlarged lymph nodes. Urinary bladder: Mild fat stranding above the superior anterior urinary bladder wall adjacent to the Caesarean section scar. No fluid collection. No hernia. Reproductive: Anteverted uterus with an IUD within the endometrial cavity. Normal bilateral ovaries. Bones/joints: Unremarkable. No acute fracture. Soft tissues: See Urinary bladder finding. IMPRESSION: 1. No acute intra-abdominal or pelvic finding. 2. Postoperative changes of Caesarean section, IUD placement, and cholecystectomy. Dictated and Authenticated by: Carol Harry MD. Ordering:GISELLE Fenton MD
[2020-10-28 18:44] LABS: Bilirubin Negative (Negative); Blood Negative (Negative); Clarity Clear (Clear); Glucose Negative (Negative); Ketones Negative (Negative); Leukocyte Esterase Negative (Negative); Nitrite Negative (Negative); Specific Gravity 1.025 (1.005-1.025); Urobilinogen 0.2 EU/dL (Up TO 0.2)
[2020-10-28] MEDS: ACETAMINOPHEN 1,000 MG/100 ML BTL 400 MG IVPB (19:23)
[2020-10-28] MEDS: Normal Saline 1,000 ML 1000 ML IV (19:23)
--- NOTE | 2020-10-28 19:51 | ED.GENADUL_ITS ---
Discharge Plan Disposition Patient Disposition: HOME Condition: Stable Discharge Details Clinical Impression: Acute PID (pelvic inflammatory disease) Primary Care Provider: None,None ED Provider: Jossy Paniagua Home Meds and New Rx's Prescriptions: New doxycycline hyclate 100 mg tablet 100 mg PO BID Qty: 28 RF: 0 No Action Kyleena 17.5 mcg/24 hrs (5 yrs) 19.5 mg intrauterine device 1 device intrauterine ONCE RF: 0 sertraline [Zoloft] 50 mg tablet 50 mg PO DAILY RF: 0 trazodone 50 mg tablet 50 mg PO QHS PRNRF: 0 Discharge Instructions Additional Instructions: Please follow-up with your primary care physician for reevaluation and your pelvic ultrasound outpatient Take the antibiotic as prescribed She develop worsening pain, fever, or with any new or progressing symptoms, please return to the emergency room Should you develop worsening pain or fever, please return to the emergency room for reassessment Medical Decision Making Patient appears well, she has no cervical motion tenderness, she has a negative GC chlamydia test and I will not treat her with aspirin give prophylaxis at this time I did order a vaginal pathology screen at this was ordered initially and patient is sexually active and monogamous with her partner, no risk for sexually transmitted disease, however I will treat her with doxycycline, 14-day supply CT shows endometrial IUD Please discuss with Dr. Coronado the string was not visualized and CT is not at goal standard for assessing IUD position Unfortunately we do not have ultrasound available at this time Patient is scheduled for outpatient ultrasound on 16 November reportedly There is no indication for admission, patient is afebrile nontoxic in appearance She will need to follow-up with her primary care physician in 2 to 3 days for reassessment She is given a threshold to return should she have new or worsening complaints Urinalysis not show acute abnormality, test negative Medical Records Medical records reviewed: Yes I reviewed the patient's medical records. Lab Data Lab results reviewed: Yes I reviewed the patient's lab results. HPI General Mode of arrival: ambulatory . Date/Time Provider Initiated Documentation: 10/28/20 17:23 . Limitations to Documentation: no limitations . Information obtained by: patient . HPI Narrative: This 20-year-old female presents with abdominal pain for the past 2-week. Denies any change in discomfort. Denies any fever or chills. Denies any nausea or vomiting. Denies any new sexual partners. Denies risk actually transmitted disease and actually had a negative gonorrhea and Chlamydia test 3 days ago. She does have an IUD and reportedly they were unable to visualize the strings from the IUD at time of reevaluation on 25 October. Denies any vaginal discharge. Related Data Home Medications Medication Instructions Recorded Confirmed levonorgestrel 1 device INTRAUTERINE ONCE 01/29/20 10/28/20 sertraline 50 mg tablet 50 mg PO DAILY 10/25/20 10/28/20 trazodone 50 mg tablet 50 mg PO QHS PRN 10/25/20 10/28/20 doxycycline hyclate 100 mg PO BID #28 tab 10/28/20 Previous Rx's Medication Instructions Recorded doxycycline hyclate 100 mg PO BID #28 tab 10/28/20 Allergies Allergy/AdvReac Type Severity Reaction Status Date / Time Latex, Natural Rubber Allergy Severe tongue Verified 10/28/20 17:29 gets itchy and get hard to breath. Penicillins Allergy Severe hives and Verified 10/28/20 17:29 swelling General Stated Complaint: Abd Prob ROXY: 3 Review of Systems All systems reviewed & are unremarkable except as noted in HPI and below PFSH Medical History Back pain S/P spinal fracture, chiropractic in the past History of spinal fracture playing football IUD surveillance (01/29/20) Kyleena Obesity bmi 47 Surgical History Previous section 11/27/19 RC/S SROM 35+w EGRenae. Lupe Thakkar S/P cholecystectomy Status post repeat low transverse section Family History Mother Diabetes Heart disease CHF, age 55 Kidney failure Alcohol abuse Thyroid condition Maternal Grandmother Heart disease CHF, age 50s. Diabetes Kidney failure Social History Smoking/Tobacco Use Status: Never Second Hand Exposure: No Smoking risk assessment performed?: Yes Alcohol Intake: former Year quit: 2019 Details: quit with Substance use type: marijuana Details: quit with Household members: significant other and other Details: S-Boyce. 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 Date GA/Weeks # Outcome Route Wgt Sex Labor Lgth Anesthes ia Location Prov Complic 08/28/17 34 Successful 3260.195 g Male [facility] 11/27/19 35 No Successful 2415.011 g Male amanda coronado Delivery Date: 08/28/17 34 weeks, for placental abruption general anesthesia, IOL for severe preeclampsia. Labetalol PO after delivery x 4 weeks. Vonda Benavides Delivery Date: 11/27/19 No notes to display Exam Const General: cooperative, comfortable and no acute distress Chest Chest: normal inspection of the chest Resp Effort & Inspection: normal respiratory effort Cardio Rate: regular rate GI Other: Mild suprapubic abdominal tenderness Other: Positive cervical motion tenderness, no abnormal discharge, no adnexal tenderness or visible masses Skin General skin exam: rashes and/or lesions noted Neuro General: patient alert and patient oriented x3 Course Vital Signs Vital signs: Vital Signs Temperature 36.8 C 10/28/20 17:22 Pulse 73 10/28/20 17:22 Blood Pressure 134/111 H 10/28/20 17:22 Pulse Oximetry 99 10/28/20 17:22 Temperature 36.8 C 10/28/20 17:22 Temperature Source Temporal Artery Scan 10/28/20 17:22 Pulse 73 10/28/20 17:22 Respiratory Effort Non-Labored 10/28/20 17:28 Blood Pressure 134/111 H 10/28/20 17:22 Blood Pressure Position Sitting 10/28/20 17:22 Pulse Oximetry 99 10/28/20 17:22 Oxygen Delivery Method Room Air 10/28/20 17:22 Oxygen Flow Rate 0 10/28/20 17:22 Pain Level 9 10/28/20 17:22 Lab/Test Results Lab/Test Results: 10/28/20 17:55 Vaginal Vaginitis Screen - Pending Laboratory Tests Range/Units 10/28/20 10/28/20 10/28/20 17:27 17:30 17:30 WBC (4.4-10.8) 10^3/uL 8.59 RBC (3.93-5.22) 10^6/uL 4.83 Hgb (11.2-15.7) g/dL 13.9 Hct (36.0-46.0) % 42.5 MCV (80-95) fL 88.0 MCH (27.0-33.0) pg 28.8 MCHC (32.0-36.0) % 32.7 RDW (11.7-14.6) % 12.8 Plt Count (130-400) 10^3/uL 254 MPV (8.0-11.0) fL 11.8 H Immature Gran % 0.2 Neutrophils % 54.1 Lymphocytes % 38.6 Monocytes % 5.8 Eosinophils % 1.0 Basophils % 0.3 Nucleated RBC % % 0 Absolute Neutrophils (1.2-6.7) 10^3/uL 4.63 Absolute Lymphocytes (1.2-3.4) 10^3/uL 3.32 Absolute Monocytes (0.1-0.8) 10^3/uL 0.50 Absolute Eosinophils (0.0-0.7) 10^3/uL 0.09 Absolute Basophils (0.0-0.2) 10^3/uL 0.03 Sodium (136-145) mmol/L 139 Potassium (3.5-5.1) mmol/L 3.9 Chloride (98-107) mmol/L 104 Carbon Dioxide (21.0-32.0) mmol/L 27.6 Anion Gap (3-11) mmol/L 7.4 BUN (7-18) mg/dL 12 Creatinine (0.55-1.02) mg/dL 0.7 Estimated GFR/1.73 m2 (mL/min/1.73m2) >= 60.00 Glucose (74-106) mg/dL 93 Calcium (8.5-10.1) mg/dL 9.5 Total Bilirubin (0.2-1.0) mg/dL 0.4 AST (15-37) U/L 41 H ALT (14-59) U/L 29 Alkaline Phosphatase (46-116) U/L 72 Total Protein (6.4-8.2) g/dL 8.6 H Albumin (3.4-5.0) g/dL 4.0 Lipase (73-393) U/L Urine Color (Yellow) Yellow Urine Clarity (Clear) Clear Urine pH (5-8) 5.0 Ur Specific [place] (1.005-1.025) 1.025 Urine Protein (Negative) mg/dL Negative Urine Ketones (Negative) mg/dL Negative Urine Blood (Negative) Negative Urine Nitrite (Negative) Negative Urine Bilirubin (Negative) Negative Urine Urobilinogen (Up TO 0.2) EU/dL 0.2 Ur Leukocyte Esterase (Negative) Negative Urine Glucose (Negative) mg/dL Negative Range/Units 10/28/20 17:30 WBC (4.4-10.8) 10^3/uL RBC (3.93-5.22) 10^6/uL Hgb (11.2-15.7) g/dL Hct (36.0-46.0) % MCV (80-95) fL MCH (27.0-33.0) pg MCHC (32.0-36.0) % RDW (11.7-14.6) % Plt Count (130-400) 10^3/uL MPV (8.0-11.0) fL Immature Gran % Neutrophils % Lymphocytes % Monocytes % Eosinophils % Basophils % Nucleated RBC % % Absolute Neutrophils (1.2-6.7) 10^3/uL Absolute Lymphocytes (1.2-3.4) 10^3/uL Absolute Monocytes (0.1-0.8) 10^3/uL Absolute Eosinophils (0.0-0.7) 10^3/uL Absolute Basophils (0.0-0.2) 10^3/uL Sodium (136-145) mmol/L Potassium (3.5-5.1) mmol/L Chloride (98-107) mmol/L Carbon Dioxide (21.0-32.0) mmol/L Anion Gap (3-11) mmol/L BUN (7-18) mg/dL Creatinine (0.55-1.02) mg/dL Estimated GFR/1.73 m2 (mL/min/1.73m2) Glucose (74-106) mg/dL Calcium (8.5-10.1) mg/dL Total Bilirubin (0.2-1.0) mg/dL AST (15-37) U/L ALT (14-59) U/L Alkaline Phosphatase (46-116) U/L Total Protein (6.4-8.2) g/dL Albumin (3.4-5.0) g/dL Lipase (73-393) U/L 184 Urine Color (Yellow) Urine Clarity (Clear) Urine pH (5-8) Ur Specific [place] (1.005-1.025) Urine Protein (Negative) mg/dL Urine Ketones (Negative) mg/dL Urine Blood (Negative) Urine Nitrite (Negative) Urine Bilirubin (Negative) Urine Urobilinogen (Up TO 0.2) EU/dL Ur Leukocyte Esterase (Negative) Urine Glucose (Negative) mg/dL POC- Test(urine) Negative
== END 2020-10-28 20:50 | disposition home or self-care (01) ==
PROVIDERS: Emergency Provider Physician Assistant
DX: N73.0 Acute parametritis and pelvic cellulitis (principal)
CPT/HCPCS: 36415; 80053; 81025; 83690; 96361; 96365; 99285; 74177; 81003; 85025; 87480; 87510; 87660; 99284; J0131; J2405; J3490

== ENCOUNTER 2020-11-11 15:16 | Emergency (ER) | payer MEDICAID, SELFPAY ==
[2020-11-11 15:26] VITALS: BP 143/116; PULSE 86; RESP 18; TEMP 36.7; O2SAT 98
--- NOTE | 2020-11-11 15:30 | DI.US_ITS ---
Exam(s) US PELVIS TRANSVAGINAL EXAM: US PELVIS TRANSVAGINAL CLINICAL HISTORY: r/o torsion, assess for iud. TECHNIQUE: Transabdominal and transvaginal pelvic ultrasound was performed using standard protocol. COMPARISON: US US OB EDWIN WEIGHT from 10/27/2019 FINDINGS: KIDNEYS: Kidneys are symmetric in size. No evidence of renal calculi. No evidence of hydronephrosis. No renal mass or cyst identified. UTERUS: Position: Anteverted. Size: 8.6 long by 4 AP by 5.8 transverse cm Endometrium: 0.5 cm. Normal for patient's menstrual status. There is an IUD in good position. Myometrium: Unremarkable. Cervix: Unremarkable. OVARIES: Right: 1.9 x 1.8 x 1.4 cm Cyst or mass: None. Left: 1.8 x 1.7 x 1.8 cm Cyst or mass: None. DOPPLER: Color: Symmetric and uniform flow to both ovaries. No hyperemia. Duplex: Normal ovarian arterial waveforms visualized. CUL-DE-SAC: Free fluid: None. Other: None. IMPRESSION: 1. Normal sonographic appearance of the kidneys. 2. Normal-appearing uterus with endometrial stripe within normal limits. IUD is in good position. 3. Unremarkable bilateral ovaries. DATA REPOSITORY:
--- NOTE | 2020-11-11 15:39 | ED.GENADUL_ITS ---
Discharge Plan Disposition Patient Disposition: HOME Condition: Stable Discharge Details Clinical Impression: UTI (urinary tract infection), Bacterial vaginosis Primary Care Provider: None,None ED Provider: Silvana Watson Home Meds and New Rx's Prescriptions: New sulfamethoxazole-trimethoprim [Bactrim DS] 800-160 mg tablet 1 tab PO BID 5 Days Qty: 10 RF: 0 metronidazole [Flagyl] 500 mg tablet 500 mg PO BID 7 Days Qty: 14 RF: 0 phenazopyridine [Pyridium] 200 mg tablet 200 mg PO TID PRN (Reason: pain) Qty: 6 RF: 0 Continued Kyleena 17.5 mcg/24 hrs (5 yrs) 19.5 mg intrauterine device 1 device intrauterine ONCE RF: 0 sertraline [Zoloft] 50 mg tablet 50 mg PO DAILY RF: 0 trazodone 50 mg tablet 50 mg PO QHS PRNRF: 0 doxycycline hyclate 100 mg tablet 100 mg PO BID Qty: 28 RF: 0 Discharge Instructions Instructions: Bacterial Vaginosis (ED), Urinary Tract Infection in Women (ED) Additional Instructions: Drink plenty of fluids and get plenty of rest. Prescriptions for antibiotics Flagyl and Bactrim in addition to a urinary analgesic/pain medication Pyridium were sent electronically to your pharmacy. B e aware that the medication Pyridium will turn your urine orange. Alternate tylenol and motrin as needed and directed for pain. Follow-up with your scheduled appointment with [employer] [facility] on 11/16/2020. Return immediately to the emergency department if you develop any worsening or new concerning symptoms. Referrals: [facility] [Provider Group] Radha Joya MD [ [facility] STAFF PHYSICIAN] - Discharge Data Discharge Physician: Silvana Watson Medical Decision Making 20-year-old female with a history of obesity and IUD presents for 1 month of lower abdominal, lower back and vaginal pain. [facility] and had a negative GC and chlamydia. She was seen in the ED on 10/28 and had unremarkable lab, unremarkable CT abdomen pelvis and was noted to have bacterial vaginosis on vaginal Pap screen. She was given a prescription for doxycycline which she states she did not finish. She has an upcoming appointment with [employer] [facility] and an outpatient pelvic ultrasound on 11/16. She appears nontoxic. She does have suprapubic tenderness but her abdomen is soft without rigidity or guarding. Differential diagnosis includes UTI, ovarian cyst, ovarian torsion, untreated bacterial vaginosis. Will obtain screening labs, pelvic ultrasound and perform pelvic exam. Labs and imaging reviewed. Labs unremarkable. Ultrasound negative. Urinalysis notes findings consistent with UTI. Pelvic exam done at bedside which noted discomfort during bimanual exam but no CMT, adnexal mass or tenderness, genital lesions, vaginal discharge or other acute findings. Based on patient's recent vaginal Pap screen positive for Gardnerella, will treat for bacterial vaginosis with Flagyl and UTI with Bactrim as she has an allergy to penicillin. A repeat vaginal Pap screen was obtained, but the wrong medium was used per lab so this will be discarded. Patient has an appointment with her [employer] [facility] on 11/16. Usual and customary return precautions given prior to discharge. Medical Records Medical records reviewed: Yes I reviewed the patient's medical records. Imaging Data Radiologic Study: Radiologist's impression: US Nonobstetric Pelvis; Complete Exam date and time: 11/11/2020 3:39 PM Age: 20 years old Clinical indication: Other: Lower abd pain, vaginal pain, R/O torsion, assess for iud TECHNIQUE: Imaging protocol: Transabdominal pelvic nonobstetric ultrasound. Complete exam. Real time ultrasound with image documentation. COMPARISON: CT ABDOMEN PELVIS W 10/28/2020 6:16 PM FINDINGS: Uterus/cervix: Uterus is normal. Endometrial stripe is normal. IUD in good position. Right adnexa: Ovary is normal. No mass. Normal blood flow. Left adnexa: Ovary is normal. No mass. Normal blood flow. Intraperitoneal space: No intraperitoneal fluid. Urinary bladder: Normal. IMPRESSION: No acute findings. Lab Data Lab results reviewed: Yes I reviewed the patient's lab results. Labs: 11/11/20 18:17 Vaginal Vaginitis Screen - Pending 11/11/20 15:20 Urine - Reflex from Ua Urine Culture - Pending Laboratory Tests Range/Units 11/11/20 11/11/20 11/11/20 15:20 16:05 16:05 WBC (4.4-10.8) 10^3/uL 6.49 RBC (3.93-5.22) 10^6/uL 4.46 Hgb (11.2-15.7) g/dL 12.9 Hct (36.0-46.0) % 39.2 MCV (80-95) fL 87.9 MCH (27.0-33.0) pg 28.9 MCHC (32.0-36.0) % 32.9 RDW (11.7-14.6) % 12.4 Plt Count (130-400) 10^3/uL 222 MPV (8.0-11.0) fL 11.4 H Immature Gran % 0.3 Neutrophils % 56.2 Lymphocytes % 37.3 Monocytes % 4.9 Eosinophils % 1.1 Basophils % 0.2 Nucleated RBC % % 0 Absolute Neutrophils (1.2-6.7) 10^3/uL 3.65 Absolute Lymphocytes (1.2-3.4) 10^3/uL 2.42 Absolute Monocytes (0.1-0.8) 10^3/uL 0.32 Absolute Eosinophils (0.0-0.7) 10^3/uL 0.07 Absolute Basophils (0.0-0.2) 10^3/uL 0.01 Sodium (136-145) mmol/L 144 Potassium (3.5-5.1) mmol/L 3.8 Chloride (98-107) mmol/L 106 Carbon Dioxide (21.0-32.0) mmol/L 32.6 H Anion Gap (3-11) mmol/L 5.4 BUN (7-18) mg/dL 9 Creatinine (0.55-1.02) mg/dL 0.8 Estimated GFR/1.73 m2 (mL/min/1.73m2) >= 60.00 Glucose (74-106) mg/dL 102 Calcium (8.5-10.1) mg/dL 9.2 Total Bilirubin (0.2-1.0) mg/dL 0.3 AST (15-37) U/L 49 H ALT (14-59) U/L 37 Alkaline Phosphatase (46-116) U/L 71 Total Protein (6.4-8.2) g/dL 7.6 Albumin (3.4-5.0) g/dL 3.6 Urine Color (Yellow) Yellow Urine Clarity (Clear) Clear Urine pH (5-8) 5.5 Ur Specific Clifford (1.005-1.025) 1.025 Urine Protein (Negative) mg/dL Negative Urine Ketones (Negative) mg/dL Negative Urine Blood (Negative) Small H Urine Nitrite (Negative) Negative Urine Bilirubin (Negative) Negative Urine Urobilinogen (Up TO 0.2) EU/dL 0.2 Ur Leukocyte Esterase (Negative) Small H Urine RBC (0-2) HPF 20-50 H Urine WBC (0-5) HPF >50 H Ur Epithelial Cells (Negative) HPF Few Urine Crystals (Negative) HPF Negative Urine Bacteria (Negative) HPF Few Urine Casts (Negative) LPF 0-2 Hyaline Urine Mucus (Negative) Negative Ur Culture Indicated? Yes Urine Glucose (Negative) mg/dL Negative HPI General Mode of arrival: ambulatory . Date/Time Provider Initiated Documentation: 11/11/20 15:35 . Limitations to Documentation: no limitations . Information obtained by: patient . HPI Narrative: Patient is a 20-year-old female with a history of IUD, obesity who presents for lower abdominal and lower back pain, and vaginal pain for the past month. Patient was seen here 2 weeks ago for the same complaint and had unremarkable labs and abdominal CT scan but was noted to have bacterial vaginosis. She was given a prescription for doxycycline for possible PID. She had a negative GC and chlamydia 3 days prior to her ED visit with [employer]. She states the pain is now becoming worse. She describes it as constant, burning and occasionally associated with vomiting. She does admit to burning in her vagina and in her abdomen with urination. She states she is sexually active, last intercourse 3 weeks ago. She admits to normal physiologic discharge and denies any yellow-green abnormal vaginal discharge. She denies any known fever, diarrhea, genital lesions. Related Data Home Medications Medication Instructions Recorded Confirmed levonorgestrel 1 device INTRAUTERINE ONCE 01/29/20 11/11/20 sertraline 50 mg tablet 50 mg PO DAILY 10/25/20 11/11/20 trazodone 50 mg tablet 50 mg PO QHS PRN 10/25/20 11/11/20 doxycycline hyclate 100 mg PO BID #28 tab 10/28/20 11/11/20 metronidazole [Flagyl] 500 mg PO BID 7 Days #14 tab 11/11/20 phenazopyridine [Pyridium] 200 mg PO TID PRN #6 tab 11/11/20 sulfamethoxazole-trimethoprim 1 tab PO BID 5 Days #10 tab 11/11/20 [Bactrim DS] Previous Rx's Medication Instructions Recorded doxycycline hyclate 100 mg PO BID #28 tab 10/28/20 metronidazole [Flagyl] 500 mg PO BID 7 Days #14 tab 11/11/20 phenazopyridine [Pyridium] 200 mg PO TID PRN #6 tab 11/11/20 sulfamethoxazole-trimethoprim 1 tab PO BID 5 Days #10 tab 11/11/20 [Bactrim DS] Allergies Allergy/AdvReac Type Severity Reaction Status Date / Time Latex, Natural Rubber Allergy Severe tongue Verified 11/11/20 15:44 gets itchy and get hard to breath. Penicillins Allergy Severe hives and Verified 11/11/20 15:44 swelling General Stated Complaint: Abd Prob ROXY: 3 Review of Systems All systems reviewed & are unremarkable except as noted in HPI and below Constitutional Constitutional: Reports as per HPI, Denies chills and Denies fever(s) Eyes Eyes: Denies blurry vision ENT Ears, Nose, Mouth, and Throat: Denies dizziness, Denies sore throat and Denies throat swelling Cardiovascular Cardiovascular: Denies chest pain and Denies dyspnea Respiratory Respiratory: Denies cough and Denies dyspnea Gastrointestinal Gastrointestinal: Reports abdominal pain, Denies diarrhea and Reports vomiting Genitourinary Genitourinary: Denies hematuria, Reports dysuria and Reports other (vaginal pain ) Musculoskeletal Musculoskeletal: Denies back pain and Denies numbness Integumentary/Breasts Skin/Breast: Denies lesions and Denies rash Neurologic Neurologic: Denies dizziness, Denies localized weakness and Denies numbness Allergic/Immunologic Allergic/Immunologic: Denies throat swelling [facility] Medical History Back pain S/P spinal fracture, chiropractic in the past History of spinal fracture playing football IUD surveillance (01/29/20) Kyleena Obesity bmi 47 Surgical History Previous section 11/27/19 RC/S SROM 35+w EGA. Lupe Thakkar S/P cholecystectomy Status post repeat low transverse section Family History Mother Diabetes Heart disease CHF, age 55 Kidney failure Alcohol abuse Thyroid condition Maternal Grandmother Heart disease CHF, age 50s. Diabetes Kidney failure Social History Smoking/Tobacco Use Status: Never Second Hand Exposure: No Smoking risk assessment performed?: Yes Alcohol Intake: former Year quit: 2019 Details: quit with Substance use type: marijuana Details: quit with Household members: significant other and other Details: S-Boyce. 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 Date GA/Weeks # Outcome Route Wgt Sex Labor Lgth Anesthes ia Location [facility] 08/28/17 34 Successful 3260.195 g Male [place] 11/27/19 35 No Successful 2415.011 g Male amanda coronado Delivery Date: 08/28/17 34 weeks, for placental abruption general anesthesia, IOL for severe preeclampsia. Labetalol PO after delivery x 4 weeks. Vonda Benavides Delivery Date: 11/27/19 No notes to display Exam Const General: cooperative and no acute distress HENMT Head: normal to inspection Face and sinus: normal facial exam Eyes General: appearance normal, both eyes and all related structures EOM: EOM intact bilaterally Neck Neck: normal visual inspection and No submandibular swelling Lymphatic: no lymphadenopathy noted Chest Chest: normal inspection of the chest and no tenderness Resp Effort & Inspection: normal respiratory effort and able to speak in complete sentences Auscultation: clear to auscultation bilaterally Cardio Rate: regular rate Rhythm: regular rhythm GI Inspection: normal to inspection and obesity Palpation: soft, not firm, not rigid and tender suprapubicly Auscultation: hypoactive bowel sounds Skin General skin exam: no rashes or lesions noted Neuro General: patient alert, patient awake and patient oriented x3 Cognition: normal cognition Speech: speech normal Motor: muscle tone normal throughout Sensory Exam: no sensory deficits noted Extrem General: normal to inspection, full ROM, capillary refill normal, no calf tenderness bilaterally and no edema Psych Appearance: grossly normal Mental Status: mental status grossly normal Speech and Movement: speech and movement normal Affect: normal affect Course Vital Signs Vital signs: Vital Signs Temperature 98.1 F 11/11/20 15:26 Pulse 86 11/11/20 15:26 Respiratory Rate 18 11/11/20 15:26 Blood Pressure 143/116 H 11/11/20 15:26 Pulse Oximetry 98 11/11/20 15:26 Temperature 98.1 F 11/11/20 15:26 Temperature Source Skin 11/11/20 15:26 Pulse 86 11/11/20 15:26 Respiratory Rate 18 11/11/20 15:26 Blood Pressure 143/116 H 11/11/20 15:26 Blood Pressure Position Sitting 11/11/20 15:26 Pulse Oximetry 98 11/11/20 15:26 Oxygen Delivery Method Room Air 11/11/20 15:26 Oxygen Flow Rate 0 11/11/20 15:26 Pain Level 9 11/11/20 15:26
--- NOTE | 2020-11-11 15:43 | NUR.NOTE ---
Patient reports she was started on an antibiotic when she was in seen in ED but it wasn't making her better, so she stopped it, as well as her home medications.Nursing Note:
[2020-11-11 15:44] LABS: Bilirubin Negative (Negative); Blood Small (Negative); Clarity Clear (Clear); Glucose Negative (Negative); Ketones Negative (Negative); Leukocyte Esterase Small (Negative); Nitrite Negative (Negative); Specific Gravity 1.025 (1.005-1.025); Urobilinogen 0.2 EU/dL (Up TO 0.2); pH 5.5 (5-8)
[2020-11-11 15:59] LABS: Bacteria Few HPF (Negative); C & S Indicated? Yes; Casts 0-2 Hyaline LPF (Negative); Crystals Negative HPF (Negative); Epithelial Cells Few HPF (Negative); Mucus Negative (Negative); RBC 20-50 HPF (0-2); WBC >50 HPF (0-5)
[2020-11-11] MEDS: Normal Saline 1,000 ML 1000 ML IV (16:08)
[2020-11-11] MEDS: Ketorolac 30 MG/ML VIAL IVP (16:11)
[2020-11-11 16:23] LABS: Abs Immature Grans 0.02 10^3/uL (0.0-0.06); Absolute Basophil Count 0.01 10^3/uL (0.0-0.2); Absolute Eosinophil Count 0.07 10^3/uL (0.0-0.7); Absolute Lymphocyte Count 2.42 10^3/uL (1.2-3.4); Absolute Monocyte Count 0.32 10^3/uL (0.1-0.8); Absolute Neutrophil Count 3.65 10^3/uL (1.2-6.7); Basophils % 0.2; Eosinophils % 1.1; HCT 39.2 % (36.0-46.0); HGB 12.9 g/dL (11.2-15.7); Immature Grans % 0.3; Lymphocytes % 37.3; MCH 28.9 pg (27.0-33.0); MCHC 32.9 % (32.0-36.0); MCV 87.9 fL (80-95); MPV 11.4 fL (8.0-11.0); Monocytes % 4.9; Neutrophils % 56.2; Nucleated RBC 0 %; Platelet Count 222 10^3/uL (130-400); RBC 4.46 10^6/uL (3.93-5.22); RDW 12.4 % (11.7-14.6); RDW-SD 40.1 fL; WBC 6.49 10^3/uL (4.4-10.8)
--- NOTE | 2020-11-11 16:25 | NUR.NOTE ---
To Ultrasound per cart with semiconductor technician.Nursing Note:
[2020-11-11 16:33] LABS: ALT 37 U/L (14-59); AST 49 U/L (15-37); Albumin 3.6 g/dL (3.4-5.0); Alkaline Phosphatase 71 U/L (46-116); Anion Gap 5.4 mmol/L (3-11); BUN 9 mg/dL (7-18); Bilirubin, Total 0.3 mg/dL (0.2-1.0); CO2 32.6 mmol/L (21.0-32.0); CREATININE 0.8 mg/dL (0.55-1.02); Calcium 9.2 mg/dL (8.5-10.1); Chloride 106 mmol/L (98-107); Glucose 102 mg/dL (74-106); Potassium 3.8 mmol/L (3.5-5.1); Sodium 144 mmol/L (136-145); Total Protein 7.6 g/dL (6.4-8.2)
[2020-11-11 17:47] VITALS: BP 119/67; PULSE 60; RESP 18; O2SAT 100
--- NOTE | 2020-11-11 18:12 | NUR.NOTE ---
Pelvic exam by Dr. Watson, this RN present. Swab obtained.Nursing Note:
[2020-11-11] MEDS: metroNIDAZOLE 500 MG TAB PO (18:20)
[2020-11-11] MEDS: Sulfameth/Trimeth DS TAB 1 TAB PO (18:20)
[2020-11-11] MEDS: Acetaminophen 325 MG TAB 650 MG PO (18:20)
[2020-11-11] MEDS: Phenazopyridine 100 MG TAB PO (18:21)
--- NOTE | 2020-11-11 18:21 | DI.VRAD_ITS ---
PROCEDURE INFORMATION: Exam: US Nonobstetric Pelvis; Complete Exam date and time: 11/11/2020 3:39 PM Age: 20 years old Clinical indication: Other: Lower abd pain, vaginal pain, R/O torsion, assess for iud TECHNIQUE: Imaging protocol: Transabdominal pelvic nonobstetric ultrasound. Complete exam. Real time ultrasound with image documentation. COMPARISON: CT ABDOMEN PELVIS W 10/28/2020 6:16 PM FINDINGS: Uterus/cervix: Uterus is normal. Endometrial stripe is normal. IUD in good position. Right adnexa: Ovary is normal. No mass. Normal blood flow. Left adnexa: Ovary is normal. No mass. Normal blood flow. Intraperitoneal space: No intraperitoneal fluid. Urinary bladder: Normal. IMPRESSION: No acute findings. Dictated and Authenticated by: Andrew Araiza MD. Ordering:CABRERA Pina MD
--- NOTE | 2020-11-13 12:35 | W.ED.FU ---
Patient on Bactrim, will switch to clindamycin as she has pen allergic, positive strep agalactiae Still experiencing dysuria per patient
== END 2020-11-11 18:40 | disposition home or self-care (01) ==
PROVIDERS: Emergency Provider Physician Assistant
DX: N39.0 Urinary tract infection, site not specified (principal); N76.0 Acute vaginitis; B96.89 Other specified bacterial agents as the cause of diseases classified elsewhere
CPT/HCPCS: 36415; 80053; 81025; 87077; 96361; 96374; 99284; 76830; 76856; 81003; 81015; 85025; 87086; 87480; 87510; 87660; 99285; J1885

== ENCOUNTER 2020-11-16 17:10 | Emergency (ER) | payer MEDICAID, SELFPAY ==
[2020-11-16 17:30] VITALS: BP 128/80; PULSE 97; RESP 19; TEMP 36.9; O2SAT 97
[2020-11-16 17:37] VITALS: BP 128/80; PULSE 94; O2SAT 97
[2020-11-16 17:38] VITALS: O2SAT 97
[2020-11-16 17:38] LABS: Bilirubin Negative (Negative); Blood Small (Negative); Clarity Sl Cloudy (Clear); Glucose Negative (Negative); Ketones Negative (Negative); Leukocyte Esterase Trace (Negative); Nitrite Negative (Negative); Specific Gravity >= 1.030 (1.005-1.025); Urobilinogen 0.2 EU/dL (Up TO 0.2); pH 5.5 (5-8)
[2020-11-16 17:40] VITALS: O2SAT 97
[2020-11-16 17:44] LABS: Bacteria Moderate HPF (Negative); C & S Indicated? No/Sq. Contamination; Casts Negative LPF (Negative); Crystals Negative HPF (Negative); Epithelial Cells Many HPF (Negative); Mucus Negative (Negative)
[2020-11-16 18:58] LABS: Bilirubin Negative (Negative); Blood Small (Negative); Clarity Sl Cloudy (Clear); Glucose Negative (Negative); Ketones Negative (Negative); Leukocyte Esterase Small (Negative); Nitrite Negative (Negative); Specific Gravity >= 1.030 (1.005-1.025); Urobilinogen 0.2 EU/dL (Up TO 0.2); pH 5.5 (5-8)
[2020-11-16 19:09] LABS: Bacteria Moderate HPF (Negative); Casts Negative LPF (Negative); Crystals Negative HPF (Negative); Epithelial Cells Many HPF (Negative); Mucus Negative (Negative)
[2020-11-16 19:10] LABS: C & S Indicated? No/Sq. Contamination
[2020-11-16] MEDS: Ketorolac 30 MG/ML VIAL IVP (19:21)
[2020-11-16 19:24] LABS: Abs Immature Grans 0.03 10^3/uL (0.0-0.06); Absolute Basophil Count 0.04 10^3/uL (0.0-0.2); Absolute Eosinophil Count 0.14 10^3/uL (0.0-0.7); Absolute Lymphocyte Count 3.95 10^3/uL (1.2-3.4); Absolute Monocyte Count 0.69 10^3/uL (0.1-0.8); Absolute Neutrophil Count 5.91 10^3/uL (1.2-6.7); Basophils % 0.4; Eosinophils % 1.3; HCT 41.1 % (36.0-46.0); HGB 13.4 g/dL (11.2-15.7); Immature Grans % 0.3; Lymphocytes % 36.7; MCH 28.9 pg (27.0-33.0); MCHC 32.6 % (32.0-36.0); MCV 88.8 fL (80-95); MPV 11.1 fL (8.0-11.0); Monocytes % 6.4; Neutrophils % 54.9; Nucleated RBC 0 %; Platelet Count 261 10^3/uL (130-400); RBC 4.63 10^6/uL (3.93-5.22); RDW 12.8 % (11.7-14.6); RDW-SD 41.4 fL; WBC 10.76 10^3/uL (4.4-10.8)
[2020-11-16 19:37] LABS: ALT 45 U/L (14-59); AST 62 U/L (15-37); Alkaline Phosphatase 70 U/L (46-116); Anion Gap 7.3 mmol/L (3-11); BUN 8 mg/dL (7-18); Bilirubin, Total 0.4 mg/dL (0.2-1.0); CO2 29.7 mmol/L (21.0-32.0); Calcium 9.2 mg/dL (8.5-10.1); Chloride 102 mmol/L (98-107); Glucose 106 mg/dL (74-106); Lipase 168 U/L (73-393); Potassium 3.6 mmol/L (3.5-5.1); Sodium 139 mmol/L (136-145); Total Protein 8.4 g/dL (6.4-8.2)
--- NOTE | 2020-11-16 19:38 | NUR.NOTE ---
193-straight cath by this RN. Sterile technique. Tolerated very poorly.Nursing Note:
--- NOTE | 2020-11-16 19:45 | W.ED.GENAD ---
Discharge Plan Disposition Patient Disposition: HOME Condition: Stable Discharge Details Clinical Impression: Dysuria, Abdominal pain Primary Care Provider: None,None ED Provider: Shaka Russo Home Meds and New Rx's Prescriptions: New phenazopyridine [Pyridium] 200 mg tablet 200 mg PO TID PRNQty: 6 RF: 0 Continued Kyleena 17.5 mcg/24 hrs (5 yrs) 19.5 mg intrauterine device 1 device intrauterine ONCE RF: 0 sertraline [Zoloft] 50 mg tablet 50 mg PO DAILY RF: 0 trazodone 50 mg tablet 50 mg PO QHS PRNRF: 0 doxycycline hyclate 100 mg tablet 100 mg PO BID Qty: 28 RF: 0 clindamycin HCl 300 mg capsule 300 mg PO Q6H Qty: 21 RF: 0 Discharge Instructions Instructions: Dysuria (ED), Abdominal Pain (ED) Additional Instructions: Laboratory values and urinalysis did not reveal any obvious emergent process. Pyridium as directed. Please watch for new or worsening symptoms and return to the ER for any concerns. Please follow-up with women's health as already scheduled. I have placed you on the list for urology, please contact the office of Dr. Lugo on Wednesday. Referrals: Marco Lugo MD [ [facility] STAFF PHYSICIAN] - Discharge Data Discharge Date/Time-TO BE ENTERED AT DEPARTURE: 11/16/20 21:06 Medical Decision Making This is a 20-year-old female with abdominal pain, dysuria this been going on for at least a month, been seen both in our ER and by women's health, has had ultrasound and CT imaging including a pelvic exam. Patient has been on multiple antibiotics, currently on clindamycin. Patient states that nothing really relieves her symptoms, she is extremely frustrated, irritated, and the burning sensation is quite uncomfortable. She does believe that she saw small in the blood in her urine over the past 24 hours. Clinically she appears well, nontoxic although she is anxious and tearful. She does appear quite frustrated, she does yell at staff occasionally. She was witnessed ambulating steadily to the restroom multiple times. Upon presentation she is hemodynamically stable, afebrile, abdomen is soft, certainly nonsurgical although she does have mild discomfort in her lower abdomen. Given her recent pelvic exam, cultures, ultrasound, CT imaging, and her pain is essentially unchanged over the past month, I am unsure of what I will be able to add to the current work-up. She is agreeable to allowing IV access, screening laboratory values, urinalysis, IV Toradol and reassessment. Unfortunately her first urinalysis was contaminated, a second was not obtained. Unfortunately the second was also contaminated, we obtained a third urinalysis through a straight cath. Laboratory values are grossly unremarkable, no evidence of leukocytosis, anemia, electrolyte abnormality, renal function is normal, urinalysis via straight cath is yellow, clear, negative ketones, trace blood but negative nitrates, leuk esterase, zero-2 red cells, 3-5 white cells. POC negative. Patient is declining a pelvic examination as she recently had one. She denies any vaginal bleeding or discharge. She reports that she is sexually active with one partner and has no real of STD. I did offer the patient a repeat ultrasound and/or CT however she states that her pain is the same, they were normal, and she declines repeat imaging at this time. At this point I see no clear etiology of her symptoms, she has been seen in the ER as well as women's health thinking this may be an [employer] type problem however given her lower abdominal pain and ongoing dysuria perhaps this is coming from a urological standpoint. I would like to place her on the urology list, refer her to Dr. Lugo, and I will trial her with Pyridium. First dose of Pyridium given here. Patient is comfortable with this plan and has no additional questions or concerns. I will provide her with a prescription of 6 tablets of Pyridium. Encouraged to return to the ER for new or worsening symptoms. Standard discharge and return precautions provided. Upon discharge she is no longer crying or anxious. She does report some relief with the IV Toradol and p.o. Pyridium. This documentation was generated using [employer] system, please disregard any oddities of phrase or misspellings. Medical Records Medical records reviewed: Yes I reviewed the patient's medical records. Lab Data Lab results reviewed: Yes I reviewed the patient's lab results. Labs: 11/16/20 19:38 Urine - Reflex from Ua Urine Culture - Preliminary Laboratory Tests Range/Units 11/16/20 11/16/20 11/16/20 17:33 18:43 19:14 WBC (4.4-10.8) 10^3/uL RBC (3.93-5.22) 10^6/uL Hgb (11.2-15.7) g/dL Hct (36.0-46.0) % MCV (80-95) fL MCH (27.0-33.0) pg MCHC (32.0-36.0) % RDW (11.7-14.6) % Plt Count (130-400) 10^3/uL MPV (8.0-11.0) fL Immature Gran % Neutrophils % Lymphocytes % Monocytes % Eosinophils % Basophils % Nucleated RBC % % Absolute Neutrophils (1.2-6.7) 10^3/uL Absolute Lymphocytes (1.2-3.4) 10^3/uL Absolute Monocytes (0.1-0.8) 10^3/uL Absolute Eosinophils (0.0-0.7) 10^3/uL Absolute Basophils (0.0-0.2) 10^3/uL Sodium (136-145) mmol/L 139 Potassium (3.5-5.1) mmol/L 3.6 Chloride (98-107) mmol/L 102 Carbon Dioxide (21.0-32.0) mmol/L 29.7 Anion Gap (3-11) mmol/L 7.3 BUN (7-18) mg/dL 8 Creatinine (0.55-1.02) mg/dL 1.0 Estimated GFR/1.73 m2 (mL/min/1.73m2) >= 60.00 Glucose (74-106) mg/dL 106 Calcium (8.5-10.1) mg/dL 9.2 Total Bilirubin (0.2-1.0) mg/dL 0.4 AST (15-37) U/L 62 H ALT (14-59) U/L 45 Alkaline Phosphatase (46-116) U/L 70 Total Protein (6.4-8.2) g/dL 8.4 H Albumin (3.4-5.0) g/dL 4.0 Lipase (73-393) U/L 168 Urine Color (Yellow) Yellow Yellow Urine Clarity (Clear) Sl Cloudy Sl Cloudy Urine pH (5-8) 5.5 5.5 Ur Specific [place] (1.005-1.025) >= 1.030 H >= 1.030 H Urine Protein (Negative) mg/dL Negative Negative Urine Ketones (Negative) mg/dL Negative Negative Urine Blood (Negative) Small H Small H Urine Nitrite (Negative) Negative Negative Urine Bilirubin (Negative) Negative Negative Urine Urobilinogen (Up TO 0.2) EU/dL 0.2 0.2 Ur Leukocyte Esterase (Negative) Trace H Small H Urine RBC (0-2) HPF 3-5 H 3-5 H Urine WBC (0-5) HPF 10-20 H 10-20 H Ur Epithelial Cells (Negative) HPF Many Many Urine Crystals (Negative) HPF Negative Negative Urine Bacteria (Negative) HPF Moderate Moderate Urine Casts (Negative) LPF Negative Negative Urine Mucus (Negative) Negative Negative Ur Culture Indicated? No/Sq. Contamination No/Sq. Contamination Urine Glucose (Negative) mg/dL Negative Negative Range/Units 11/16/20 11/16/20 19:14 19:38 WBC (4.4-10.8) 10^3/uL 10.76 RBC (3.93-5.22) 10^6/uL 4.63 Hgb (11.2-15.7) g/dL 13.4 Hct (36.0-46.0) % 41.1 MCV (80-95) fL 88.8 MCH (27.0-33.0) pg 28.9 MCHC (32.0-36.0) % 32.6 RDW (11.7-14.6) % 12.8 Plt Count (130-400) 10^3/uL 261 MPV (8.0-11.0) fL 11.1 H Immature Gran % 0.3 Neutrophils % 54.9 Lymphocytes % 36.7 Monocytes % 6.4 Eosinophils % 1.3 Basophils % 0.4 Nucleated RBC % % 0 Absolute Neutrophils (1.2-6.7) 10^3/uL 5.91 Absolute Lymphocytes (1.2-3.4) 10^3/uL 3.95 H Absolute Monocytes (0.1-0.8) 10^3/uL 0.69 Absolute Eosinophils (0.0-0.7) 10^3/uL 0.14 Absolute Basophils (0.0-0.2) 10^3/uL 0.04 Sodium (136-145) mmol/L Potassium (3.5-5.1) mmol/L Chloride (98-107) mmol/L Carbon Dioxide (21.0-32.0) mmol/L Anion Gap (3-11) mmol/L BUN (7-18) mg/dL Creatinine (0.55-1.02) mg/dL Estimated GFR/1.73 m2 (mL/min/1.73m2) Glucose (74-106) mg/dL Calcium (8.5-10.1) mg/dL Total Bilirubin (0.2-1.0) mg/dL AST (15-37) U/L ALT (14-59) U/L Alkaline Phosphatase (46-116) U/L Total Protein (6.4-8.2) g/dL Albumin (3.4-5.0) g/dL Lipase (73-393) U/L Urine Color (Yellow) Yellow Urine Clarity (Clear) Clear Urine pH (5-8) 5.5 Ur Specific [place] (1.005-1.025) 1.010 Urine Protein (Negative) mg/dL Negative Urine Ketones (Negative) mg/dL Negative Urine Blood (Negative) Trace-intact H Urine Nitrite (Negative) Negative Urine Bilirubin (Negative) Negative Urine Urobilinogen (Up TO 0.2) EU/dL 0.2 Ur Leukocyte Esterase (Negative) Negative Urine RBC (0-2) HPF 0-2 Urine WBC (0-5) HPF 3-5 Ur Epithelial Cells (Negative) HPF Few Urine Crystals (Negative) HPF Negative Urine Bacteria (Negative) HPF Few Urine Casts (Negative) LPF Negative Urine Mucus (Negative) Negative Ur Culture Indicated? Yes Urine Glucose (Negative) mg/dL Negative HPI General Mode of arrival: ambulatory. Date/Time Provider Initiated Documentation: 11/16/20 17:10. Limitations to Documentation: no limitations. Information obtained by: patient. HPI Narrative: This is a 20-year-old female, past medical history of low back pain, IUD placement, obesity, x2, cholecystectomy, acute adjustment disorder with mixed anxiety and depressed mood, recently treated for PID, bacterial vaginosis, and UTI, currently taking clindamycin, presenting to the ER for ongoing lower abdominal pain and dysuria. She states symptoms have been going on for at least 1 month. She has been seen in the ER multiple times for the same, been evaluated, had a pelvic exam, ultrasound, and CT imaging, and has been evaluated by women's health as an outpatient, scheduled to be seen again on the per patient. She is sexually active with 1 partner, denies STD risk, denies fever,, vaginal bleeding or discharge. She denies fever, headache, chest pain, diarrhea or constipation. She believes she noticed a small amount of blood in her urine. Patient states that her IUD was placed 8 months ago, prior to that she was , and has not had a normal menstrual cycle since that time. She is taking [id number] medications without relief. Related Data Home Medications Medication Instructions Recorded Confirmed levonorgestrel 1 device INTRAUTERINE ONCE 01/29/20 11/16/20 sertraline 50 mg tablet 50 mg PO DAILY 10/25/20 11/16/20 trazodone 50 mg tablet 50 mg PO QHS PRN 10/25/20 11/16/20 doxycycline hyclate 100 mg PO BID #28 tab 10/28/20 11/16/20 clindamycin HCl 300 mg PO Q6H #21 cap 11/13/20 11/16/20 phenazopyridine [Pyridium] 200 mg PO TID PRN #6 tab 11/16/20 Previous Rx's Medication Instructions Recorded doxycycline hyclate 100 mg PO BID #28 tab 10/28/20 clindamycin HCl 300 mg PO Q6H #21 cap 11/13/20 phenazopyridine [Pyridium] 200 mg PO TID PRN #6 tab 11/16/20 Allergies Allergy/AdvReac Type Severity Reaction Status Date / Time Latex, Natural Rubber Allergy Severe tongue Verified 11/16/20 17:51 gets itchy and get hard to breath. Penicillins Allergy Severe hives and Verified 11/16/20 17:51 swelling General Stated Complaint: Urinary ROXY: 3 Review of Systems Constitutional Constitutional: Denies fever(s), Denies headache(s) and Denies weakness ENT Ears, Nose, Mouth, and Throat: Denies headache(s) Cardiovascular Cardiovascular: Denies chest pain and Denies dyspnea Respiratory Respiratory: Denies cough and Denies dyspnea Gastrointestinal Gastrointestinal: Reports abdominal pain, Denies nausea and Denies vomiting Genitourinary Genitourinary: Denies abnormal vaginal bleeding and Reports dysuria Musculoskeletal Musculoskeletal: Reports back pain (Chronic) Integumentary/Breasts Skin/Breast: Denies rash Neurologic Neurologic: Denies headache(s) and Denies weakness PFS Medical History Back pain S/P spinal fracture, chiropractic in the past History of spinal fracture playing football IUD surveillance (01/29/20) Kyleena Obesity bmi 47 Surgical History Previous section 11/27/19 RC/S SROM 35+w EGA. Lupe Thakkar S/P cholecystectomy Status post repeat low transverse section Family History Mother Diabetes Heart disease CHF, age 55 Kidney failure Alcohol abuse Thyroid condition Maternal Grandmother Heart disease CHF, age 50s. Diabetes Kidney failure Social History Smoking/Tobacco Use Status: Never Second Hand Exposure: No Smoking risk assessment performed?: Yes Alcohol Intake: former Year quit: 2019 Details: quit with Substance use type: marijuana Details: quit with Household members: significant other and other Details: S-Boyce. 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 Date GA/Weeks # Outcome Route Wgt Sex Labor Lgth Anesthesia Location [facility] 08/28/17 34 Successful 3260.195 g Male Ronnie [place] 11/27/19 35 No Successful 2415.011 g Male javier casanova Delivery Date: 08/28/17 34 weeks, for placental abruption general anesthesia, IOL for severe preeclampsia. Labetalol PO after delivery x 4 weeks. Vonda Benavides Delivery Date: 11/27/19 No notes to display Exam Const General: cooperative, healthy appearing, comfortable, no acute distress and anxious (Tearful) Orientation: alert and awake HENMT Head: normal to inspection, normocephalic and atraumatic Face and sinus: normal facial exam Mouth: moist mucous membranes Eyes General: appearance normal, both eyes and all related structures Conjunctivae: conjunctivae normal Neck Neck: normal visual inspection, full ROM, trachea midline and supple Resp Effort & Inspection: normal respiratory effort and able to speak in complete sentences Auscultation: clear to auscultation bilaterally Cardio Rate: regular rate Rhythm: regular rhythm GI Inspection: normal to inspection and obesity Palpation: soft, not firm, no guarding, no pulsatile masses and tender (Diffuse, mild.) with no rebound tenderness Auscultation: normal bowel sounds General: deferred (Patient declined) Skin General skin exam: no rashes or lesions noted Neuro General: patient alert, patient awake, moves all extremities and no focal motor deficits Sensory Exam: no sensory deficits noted Psych Appearance: grossly normal Mental Status: mental status grossly normal Course Vital Signs Vital signs: Vital Signs Temperature 36.9 C 11/16/20 17:30 Pulse 97 H 11/16/20 17:30 Respiratory Rate 19 11/16/20 17:30 Blood Pressure 128/80 11/16/20 17:30 Pulse Oximetry 97 11/16/20 17:30 Temperature 36.9 C 11/16/20 17:30 Temperature Source Tympanic 11/16/20 17:30 Pulse 94 H 11/16/20 17:37 Respiratory Rate 19 11/16/20 17:30 Respiratory Effort Non-Labored 11/16/20 17:38 Blood Pressure 128/80 11/16/20 17:37 Blood Pressure Mean 92 11/16/20 17:37 Blood Pressure Position Sitting 11/16/20 17:30 Pulse Oximetry 97 11/16/20 17:40 Oxygen Delivery Method Room Air 11/16/20 17:30 Oxygen Flow Rate 0 11/16/20 17:30 Pain Level 9 11/16/20 17:38 Lab/Test Results Lab/Test Results: Laboratory Tests Range/Units 11/16/20 11/16/20 11/16/20 17:33 18:43 19:14 WBC (4.4-10.8) 10^3/uL RBC (3.93-5.22) 10^6/uL Hgb (11.2-15.7) g/dL Hct (36.0-46.0) % MCV (80-95) fL MCH (27.0-33.0) pg MCHC (32.0-36.0) % RDW (11.7-14.6) % Plt Count (130-400) 10^3/uL MPV (8.0-11.0) fL Immature Gran % Neutrophils % Lymphocytes % Monocytes % Eosinophils % Basophils % Nucleated RBC % % Absolute Neutrophils (1.2-6.7) 10^3/uL Absolute Lymphocytes (1.2-3.4) 10^3/uL Absolute Monocytes (0.1-0.8) 10^3/uL Absolute Eosinophils (0.0-0.7) 10^3/uL Absolute Basophils (0.0-0.2) 10^3/uL Sodium (136-145) mmol/L 139 Potassium (3.5-5.1) mmol/L 3.6 Chloride (98-107) mmol/L 102 Carbon Dioxide (21.0-32.0) mmol/L 29.7 Anion Gap (3-11) mmol/L 7.3 BUN (7-18) mg/dL 8 Creatinine (0.55-1.02) mg/dL 1.0 Estimated GFR/1.73 m2 (mL/min/1.73m2) >= 60.00 Glucose (74-106) mg/dL 106 Calcium (8.5-10.1) mg/dL 9.2 Total Bilirubin (0.2-1.0) mg/dL 0.4 AST (15-37) U/L 62 H ALT (14-59) U/L 45 Alkaline Phosphatase (46-116) U/L 70 Total Protein (6.4-8.2) g/dL 8.4 H Albumin (3.4-5.0) g/dL 4.0 Lipase (73-393) U/L 168 Urine Color (Yellow) Yellow Yellow Urine Clarity (Clear) Sl Cloudy Sl Cloudy Urine pH (5-8) 5.5 5.5 Ur Specific [place] (1.005-1.025) >= 1.030 H >= 1.030 H Urine Protein (Negative) mg/dL Negative Negative Urine Ketones (Negative) mg/dL Negative Negative Urine Blood (Negative) Small H Small H Urine Nitrite (Negative) Negative Negative Urine Bilirubin (Negative) Negative Negative Urine Urobilinogen (Up TO 0.2) EU/dL 0.2 0.2 Ur Leukocyte Esterase (Negative) Trace H Small H Urine RBC (0-2) HPF 3-5 H 3-5 H Urine WBC (0-5) HPF 10-20 H 10-20 H Ur Epithelial Cells (Negative) HPF Many Many Urine Crystals (Negative) HPF Negative Negative Urine Bacteria (Negative) HPF Moderate Moderate Urine Casts (Negative) LPF Negative Negative Urine Mucus (Negative) Negative Negative Ur Culture Indicated? No/Sq. Contamination No/Sq. Contamination Urine Glucose (Negative) mg/dL Negative Negative Range/Units 11/16/20 19:14 WBC (4.4-10.8) 10^3/uL 10.76 RBC (3.93-5.22) 10^6/uL 4.63 Hgb (11.2-15.7) g/dL 13.4 Hct (36.0-46.0) % 41.1 MCV (80-95) fL 88.8 MCH (27.0-33.0) pg 28.9 MCHC (32.0-36.0) % 32.6 RDW (11.7-14.6) % 12.8 Plt Count (130-400) 10^3/uL 261 MPV (8.0-11.0) fL 11.1 H Immature Gran % 0.3 Neutrophils % 54.9 Lymphocytes % 36.7 Monocytes % 6.4 Eosinophils % 1.3 Basophils % 0.4 Nucleated RBC % % 0 Absolute Neutrophils (1.2-6.7) 10^3/uL 5.91 Absolute Lymphocytes (1.2-3.4) 10^3/uL 3.95 H Absolute Monocytes (0.1-0.8) 10^3/uL 0.69 Absolute Eosinophils (0.0-0.7) 10^3/uL 0.14 Absolute Basophils (0.0-0.2) 10^3/uL 0.04 Sodium (136-145) mmol/L Potassium (3.5-5.1) mmol/L Chloride (98-107) mmol/L Carbon Dioxide (21.0-32.0) mmol/L Anion Gap (3-11) mmol/L BUN (7-18) mg/dL Creatinine (0.55-1.02) mg/dL Estimated GFR/1.73 m2 (mL/min/1.73m2) Glucose (74-106) mg/dL Calcium (8.5-10.1) mg/dL Total Bilirubin (0.2-1.0) mg/dL AST (15-37) U/L ALT (14-59) U/L Alkaline Phosphatase (46-116) U/L Total Protein (6.4-8.2) g/dL Albumin (3.4-5.0) g/dL Lipase (73-393) U/L Urine Color (Yellow) Urine Clarity (Clear) Urine pH (5-8) Ur Specific [place] (1.005-1.025) Urine Protein (Negative) mg/dL Urine Ketones (Negative) mg/dL Urine Blood (Negative) Urine Nitrite (Negative) Urine Bilirubin (Negative) Urine Urobilinogen (Up TO 0.2) EU/dL Ur Leukocyte Esterase (Negative) Urine RBC (0-2) HPF Urine WBC (0-5) HPF Ur Epithelial Cells (Negative) HPF Urine Crystals (Negative) HPF Urine Bacteria (Negative) HPF Urine Casts (Negative) LPF Urine Mucus (Negative) Ur Culture Indicated? Urine Glucose (Negative) mg/dL POC- Test(urine) Negative
[2020-11-16 19:46] LABS: Bilirubin Negative (Negative); Blood Trace-intact (Negative); Clarity Clear (Clear); Glucose Negative (Negative); Ketones Negative (Negative); Leukocyte Esterase Negative (Negative); Nitrite Negative (Negative); Urobilinogen 0.2 EU/dL (Up TO 0.2); pH 5.5 (5-8)
[2020-11-16 19:53] LABS: Epithelial Cells Few HPF (Negative); RBC 0-2 HPF (0-2)
[2020-11-16 19:54] LABS: Bacteria Few HPF (Negative); C & S Indicated? Yes; Casts Negative LPF (Negative); Crystals Negative HPF (Negative); Mucus Negative (Negative)
[2020-11-16] MEDS: Phenazopyridine 200 MG TAB PO (20:20)
[2020-11-16 20:22] VITALS: BP 136/81; PULSE 60; RESP 18; TEMP 36.6; O2SAT 96
== END 2020-11-16 21:06 | disposition home or self-care (01) ==
PROVIDERS: Emergency Provider Physician Assistant
DX: R30.0 Dysuria (principal); R10.30 Lower abdominal pain, unspecified
CPT/HCPCS: 36415; 51701; 80053; 81025; 83690; 96374; 99284; 81003; 81015; 85025; 87086; J1885

== ENCOUNTER 2020-11-25 03:03 | Outpatient (CLI) | payer MEDICAID, SELFPAY ==
[2020-11-25 11:04] LABS: Source Nasal/Nares
[2020-11-25 16:00] LABS: COVID-19 PCR Negative (Negative)
== END 2020-11-25 03:04 | disposition home or self-care (01) ==
LOC: LBO 03:03
PROVIDERS: Visit Provider Obstetrics & Gynecology
DX: Z20.822 Contact with and (suspected) exposure to COVID-19 (principal); Z01.818 Encounter for other preprocedural examination
CPT/HCPCS: 87635

== ENCOUNTER 2020-11-27 08:05 | Day surgery (SDC) | payer MEDICAID, SELFPAY ==
[2020-11-27 08:19] VITALS: BP 116/73; PULSE 77; RESP 16; TEMP 36.4; O2SAT 98
[2020-11-27] MEDS: Lactated Ringers 1,000 ML 125 ML IV (09:00)
--- NOTE | 2020-11-27 09:10 | ANES.PREOP_ITS ---
General Info Date of Service Date Performed: 11/27/20 Height: 5 ft 8 in Weight: 158.6 kg Body Mass Index (BMI): 53.1 Surgical Procedure: Operation Date: 11/27/20 09:10 Proposed Procedures Side Surgeon p REMOVAL OF IUD Zoe Kirkpatrick MD Meds Allergies and Home Medications Allergies Allergy/AdvReac Type Severity Reaction Status Date / Time Latex, Natural Rubber Allergy Severe tongue Verified 11/27/20 08:18 gets itchy and get hard to breath. Penicillins Allergy Severe hives and Verified 11/27/20 08:18 swelling Home Medication Medication Instructions Recorded levonorgestrel 1 device INTRAUTERINE ONCE 01/29/20 sertraline 50 mg tablet 50 mg PO DAILY 10/25/20 trazodone 50 mg tablet 50 mg PO QHS PRN 10/25/20 Current Visit Medications: Current Medications Generic Name Dose Route Start Last Admin Trade Name Freq PRN Reason Stop Dose Admin Ringer's Solution 1,000 mls @ 125 mls/hr 11/27/20 06:00 IV 12/26/20 23:59 INFUSION SHA IV Miscellaneous Supplies 1 each 11/27/20 06:00 Iv Access IV 12/26/20 23:59 DIRECTED SHA Sodium Chloride 0 ml 11/27/20 06:00 Normal Saline Flush 10 Ml Syr IV 12/26/20 23:59 PRN PRN Sodium Chloride 0 ml 11/27/20 06:00 Normal Saline 10 Ml Vial IJ 12/26/20 23:59 DIRECTED PRN Sterile Water 0 ml 11/27/20 06:00 Water,Injection,Sterile 10 Ml Vial IJ 12/26/20 23:59 DIRECTED PRN PFSH Active Problems Active Problems: Problem Status Onset Code Yeast vaginitis B37.3 Attempted IUD removal, unsuccessful Z53.8, Z97.5 Vaginismus N94.2 Pelvic pain R10.2 Acute PID (pelvic inflammatory disease) N73.0 UTI (urinary tract infection) N39.0 Bacterial vaginosis N76.0, B96.89 Dysuria R30.0 Abdominal pain R10.9 Acute adjustment disorder with mixed anxiety and depressed mood F43.23 IUD surveillance 01/29/20 Z30.431 S/P cholecystectomy Z90.49 Back pain M54.9 History of spinal fracture Z87.81 Previous section Z98.891 Obesity E66.9 Medical History Medical History Back pain S/P spinal fracture, chiropractic in the past History of spinal fracture playing football IUD surveillance (01/29/20) Kyfelaena Obesity bmi 47 Surgical History Surgical History Previous section 11/27/19 RC/S SROM 35+w EGA. Lupe Thakkar S/P cholecystectomy Status post repeat low transverse section Tobacco Smoking/Tobacco Use Status: Never Passive smoking exposure: No Second hand exposure: No Alcohol Alcohol Intake: current Alcohol intake frequency: a few times a week Details: quit with Substance Use Substance use: Daily Substance use type: marijuana Details: Pt reports no use today; last t-1 Prental History History 2 Para 2 Hx # Term Pregnancies Multiple births Hx # Pregnancies Ectopic pregnancies AB induced Hx Number of Living Children AB spontaneous Past Pregnancies Del. Date GA/Weeks # Outcome Route Wgt Sex Labor Lgth Anesthes ia Location [facility] 08/28/17 34 Successful 3260.195 g Male Ronnie [place] 11/27/19 35 No Successful 2415.011 g Male javier casanova Delivery Date: 08/28/17 34 weeks, for placental abruption general anesthesia, IOL for severe preeclampsia. Labetalol PO after delivery x 4 weeks. Vonda Benavides Delivery Date: 11/27/19 No notes to display Vital Signs and Lab Results Vital Signs Most Recent Vital Signs in EMR: Most Recent Vital Signs Temp Pulse Resp BP Pulse Ox 36.4 C L 77 16 116/73 98 11/27/20 08:19 11/27/20 08:19 11/27/20 08:19 11/27/20 08:19 11/27/20 08:19 Point of Care Results Point of Care Results: POC- Test(urine) Negative 11/27/20 08:38 Lab Results Blood Type / Crossmatch: No Data to Display Complete Blood Count: White Blood Count 10.76 10^3/uL (4.4-10.8) 11/16/20 19:14 11/16/20 Red Blood Count 4.63 10^6/uL (3.93-5.22) 11/16/20 19:14 11/16/20 Hemoglobin 13.4 g/dL (11.2-15.7) 11/16/20 19:14 11/16/20 Hematocrit 41.1 % (36.0-46.0) 11/16/20 19:14 11/16/20 Platelet Count 261 10^3/uL (130-400) 11/16/20 19:14 11/16/20 Complete Metabolic Panel: Sodium Level 139 mmol/L (136-145) 11/16/20 19:14 11/16/20 Potassium Level 3.6 mmol/L (3.5-5.1) 11/16/20 19:14 11/16/20 Chloride Level 102 mmol/L (98-107) 11/16/20 19:14 11/16/20 Carbon Dioxide Level 29.7 mmol/L (21.0-32.0) 11/16/20 19:14 11/16/20 Blood Urea Nitrogen 8 mg/dL (7-18) 11/16/20 19:14 11/16/20 Creatinine 1.0 mg/dL (0.55-1.02) 11/16/20 19:14 11/16/20 Estimated GFR/1.73 m2 >= 60.00 (mL/min/1.73m2) 11/16/20 19:14 11/16/20 Calcium Level 9.2 mg/dL (8.5-10.1) 11/16/20 19:14 11/16/20 Albumin 4.0 g/dL (3.4-5.0) 11/16/20 19:14 11/16/20 Glucose Level 106 mg/dL (74-106) 11/16/20 19:14 11/16/20 Liver Function Panel: Alanine Aminotransferase (ALT/SGPT) 45 U/L (14-59) 11/16/20 19:14 11/16/20 Aspartate Amino Transf (AST/SGOT) 62 U/L (15-37) H 11/16/20 19:14 11/16/20 Coagulation Panel: No Data to Display Cardiac Panel: No Data to Display Arterial Blood Gas: No Data to Display Venous Blood Gas: No Data to Display Pancreas Panel: Lipase 168 U/L (73-393) 11/16/20 19:14 11/16/20 Thyroid Panel: No Data to Display Infectious Disease: Coronavirus (COVID-19)(PCR) Negative (Negative) 11/25/20 09:59 11/25/20 Coronavirus 2019 Source Nasal/Nares 11/25/20 09:59 11/25/20 Blood Cultures: No Data to Display Toxicology Panel: No Data to Display Panel: No Data to Display Anesthesia Assessment and Plan Anesthesia History Personal History: No History of Anesthesia Complications Family History: No Family History of Anesthesia Complications Exercise Tolerance Exercise Tolerance: Metabolic Equivalents>4 Cardiac & Pulmonary Exam Cardiac Exam: Normal S1/S2 Heart Sounds Pulmonary Exam: Clear Bilateral Breath Sounds Airway Exam Known Difficult Airway: No Mallampati Class: 1 Mouth Opening: Normal (> 3cm) Thyromental Distance: Greater than 3 cm Neck Range of Motion: Full ROM Neck Circumference: Thick Teeth Condition: Normal Dentition ASA Classification ASA Score: ASA 3 Emergency Case?: No NPO Status NPO Status: NPO Clears >2 hours, Solids >8 hours Status Status: Not Relevant due to Medical History Anesthesia Plan Resuscitation Status: Full Code Anesthesia Technique: MAC Anesthesia Airway Planned: Natural Airway Monitors Used: Standard Monitors
[2020-11-27 09:13] VITALS: BMI 53.1
[2020-11-27 10:47] VITALS: BP 113/47; PULSE 55; RESP 16; TEMP 36; O2SAT 97
--- NOTE | 2020-11-27 10:51 | ROE_ITS ---
Date of service: 11/27/20 Time of Service: 10:51 Operative Note Operative Note DATE OF PROCEDURE: 11/27/20 PRE-OP DIAGNOSIS: Retained IUD POST-OP DIAGNOSIS: same PROCEDURE: Removal of Intrauterine Device under anesthesia SURGEON: Zoe Kirkpatrick ANESTHESIA TYPE: Local By Surgeon and MAC Refer to Anesthesia Record ESTIMATED BLOOD LOSS: 5 Patient was transported to: PACU Patient's condition: stable Indications: Pt desired removal of her IUD as she believes it is contributing to her pelvic pain. Attempt was made in the office to removal it but the strings were not visualized and it was not easily removed and patient was experiencing significant pain so she opted for removal under anesthesia. Findings: IUD was retrieved from the uterus and the strings were noted to be folded up toward the top of the IUD Procedure Description: Informed consent was signed. The patient was taken to the room and given monitored anesthesia care. She was draped in the dorsal lithotomy position in the [facility]. A time out was performed. The vaginal was clensed with 2 betadyne swabs. A speculum was placed into the vagina to expose the cervix. The anterior lip of the cervix was grasped with a single tooth tenaculum. The uterus was sounded to 10.5cm. A cervical block was given with 1% lidocaine with epinephrine. The boseman forceps were then used to grasp the IUD and remove it intact. The tenaculum and speculum were removed. The patient was placed back into the supine position. She was moved to the stretcher and taken to the recovery room in stable condition.
--- NOTE | 2020-11-27 11:16 | W.ANESPOSTOP ---
Postoperative Evaluation Date, Time and Location Date Performed: 11/27/20 Time Performed: 11:00 Patient Location: Day Surgery Unit Vital Signs Most Recent Imported Vital Signs: Most Recent Vital Signs Temp Pulse Resp BP Pulse Ox 36 C L 55 L 16 113/47 L 97 11/27/20 10:47 11/27/20 10:47 11/27/20 10:47 11/27/20 10:47 11/27/20 10:47 Pain Score Most Recent Pain Score: Most Recent Pain Score Pain Level 0 11/27/20 10:47 Assessment Mental Status: Awake (Alert & Oriented to Patient Baseline) Airway and Respiratory Function: Patent airway with normal (patient baseline) respiratory exam Cardiovascular Function: Hemodynamically Stable Hydration Status: Adequately Hydrated Nausea & Vomiting: No Nausea or Vomiting Pain: Pt. Denies Any Pain Peripheral Nerve Block: Patient did not receive a nerve block
[2020-11-27 11:22] VITALS: BP 118/63; PULSE 61; RESP 16; TEMP 36.1; O2SAT 98
--- NOTE | 2020-11-27 12:05 | W.PM.DSUDISC ---
Discharge Plan Disposition Patient Disposition: HOME Condition: Good Discharge Details Attending Provider: Zoe Kirkpatrick Primary Care Provider: None,None Home Meds and New Rx's Prescriptions: No Action Kyleena 17.5 mcg/24 hrs (5 yrs) 19.5 mg intrauterine device 1 device intrauterine ONCE RF: 0 sertraline [Zoloft] 50 mg tablet 50 mg PO DAILY RF: 0 trazodone 50 mg tablet 50 mg PO QHS PRNRF: 0 Discharge Instructions Additional Instructions: Abstain from intercourse or use condoms consistently until your has had the vasectomy and the confirmatory test 3 months later. Stand Alone Forms: Anesthesia Discharge Inst. Activity:: Activity as Tolerated Diet:: As Tolerated Discharge Orders Discharge Orders: Discharge Order (Routine); Ordered 11/27/20 Ordered By: Zoe Kirkpatrick Discharge Data Discharge Date/Time-TO BE ENTERED AT DEPARTURE: 11/27/20 11:35 Discharge Comment: June d/c when ambulating, tolerating PO DS: Diagnosis Discharge Diagnosis (1) Retained intrauterine contraceptive device (IUD): Status: Acute
== END 2020-11-27 11:35 | disposition home or self-care (01) ==
PROVIDERS: Visit Provider Obstetrics & Gynecology
PROC: (CPT 58301; principal; 2020-11-27 09:00)
DX: T83.39XA Other mechanical complication of intrauterine contraceptive device, initial encounter (principal); N94.19 Other specified dyspareunia
CPT/HCPCS: 58301; 81025; J1885; J2250; J2704; J3010

== ENCOUNTER 2021-04-29 17:33 | Emergency (ER) | payer MEDICAID, SELFPAY ==
[2021-04-29 17:37] VITALS: BP 144/85; PULSE 53; RESP 18; O2SAT 100
[2021-04-29 17:57] LABS: Bilirubin Negative (Negative); Blood Negative (Negative); Clarity Clear (Clear); Glucose Negative (Negative); Ketones Negative (Negative); Leukocyte Esterase Negative (Negative); Nitrite Negative (Negative); Urobilinogen 0.2 EU/dL (Up TO 0.2)
--- NOTE | 2021-04-29 18:07 | ED.GENADUL_ITS ---
Discharge Plan Disposition Patient Disposition: HOME Condition: Stable Discharge Details Clinical Impression: Dysuria Primary Care Provider: Unknown,Unknown ED Provider: Tanya Lepe Home Meds and New Rx's Prescriptions: No Action sertraline [Zoloft] 50 mg tablet 50 mg PO DAILY 0RF trazodone 50 mg tablet 50 mg PO QHS PRN0RF fluconazole [Diflucan] 150 mg tablet 150 mg PO Q3D Qty: 2 0RF Rx Instructions: Take one tab today and repeat in 3 days Discharge Instructions Instructions: Dysuria (ED) Additional Instructions: At this time there is no evidence for urinary tract infection. The swabs obtained will come back in 2 to 3 days. I will call you if needed for abnormal results. Follow up with primary care provider in 3-5 days. Return to ED sooner if any worsening or concerns. Increase oral fluids. Please take Tylenol or Ibuprofen with food every 4-6 hours as needed for pain and swelling. Referrals: Jas NOBLE,Yolanda [NURSE PRACTITIONER] - 5 days Discharge Data Discharge Date/Time-TO BE ENTERED AT DEPARTURE: 04/29/21 19:25 Medical Decision Making 21-year-old female presents to the ER with chief complaint of lower bilateral pelvic pain and dysuria x3 days. She denies any nausea vomiting diarrhea. She does report that pain does radiate into her lower back. She is questioning a urinary tract infection. She denies any concern for STDs. Urinalysis shows no evidence for leukocytes or nitrites or infection. Discussed results with patient and verbalized need to do pelvic exam to rule out other etiologies such as infection or candidiasis. Patient verbalized understanding is in agreement with plan. Differential diagnosis includes but not limited to STD, candidiasis, PID, ovarian cyst Pelvic exam performed, witnessed by Concetta ENRIQUEZ who was present throughout the entire exam, patient tolerated well. Vaginal pathogen swab is gonorrhea chlamydia swab obtained and sent to lab by staff readiness officer. Patient to be discharged home and will call with abnormal results to reagan Baeza patient discharged home with follow-up with PCP or women's wellness provider. This text was generated using [employer] system, please disregard any oddities of phrase or misspellings. Vaginal pathogen screen came back negative. HPI General Mode of arrival: ambulatory . Date/Time Provider Initiated Documentation: 04/29/21 17:35 . Limitations to Documentation: no limitations . Information obtained by: patient, RN notes reviewed and old records reviewed . HPI Narrative: 21-year-old female presents to the ER with chief complaint of lower bilateral pelvic pain and dysuria x3 days. She denies any nausea vomiting diarrhea. She does report that pain does radiate into her lower back. She is questioning a urinary tract infection. She denies any concern for STDs. Related Data Home Medications Medication Instructions Recorded Confirmed sertraline 50 mg tablet (Zoloft) 50 mg PO DAILY 10/25/20 04/29/21 trazodone 50 mg tablet 50 mg PO QHS PRN 10/25/20 04/29/21 fluconazole 150 mg tablet 150 mg PO Q3D #2 tab 01/01/21 01/01/21 (Diflucan) Previous Rx's Medication Instructions Recorded fluconazole 150 mg tablet 150 mg PO Q3D #2 tab 01/01/21 (Diflucan) Allergies Allergy/AdvReac Type Severity Reaction Status Date / Time Latex, Natural Rubber Allergy Severe tongue Verified 04/29/21 17:40 gets itchy and get hard to breath. Penicillins Allergy Severe hives and Verified 04/29/21 17:40 swelling General Stated Complaint: Urinary ROXY: 4 Review of Systems All systems reviewed & are unremarkable except as noted in HPI and below Genitourinary Genitourinary: Reports dysuria and Reports pelvic pain PFSH All Active Problems (Updated 04/29/21 @ 19:15 by Tanya Lepe) Dysuria (Acute) UTI (urinary tract infection) (Acute) Retained intrauterine contraceptive device (IUD) (Acute) Yeast vaginitis (Acute) Attempted IUD removal, unsuccessful (Acute) Vaginismus (Acute) Pelvic pain (Acute) Acute PID (pelvic inflammatory disease) (Acute) UTI (urinary tract infection) (Acute) Bacterial vaginosis (Acute) Dysuria (Acute) Abdominal pain (Acute) Acute adjustment disorder with mixed anxiety and depressed mood (Acute) S/P cholecystectomy (Acute) Back pain (Acute) S/P spinal fracture, chiropractic in the past History of spinal fracture (Acute) playing football Previous section (Chronic) 11/27/19 RC/S SROM 35+w EGA. Lupe Thakkar Obesity (Chronic) bmi 47 Surgical History Status post repeat low transverse section Family History Mother Diabetes Heart disease CHF, age 55 Kidney failure Alcohol abuse Thyroid condition Maternal Grandmother Heart disease CHF, age 50s. Diabetes Kidney failure Social History Smoking/Tobacco Use Status: Never Second Hand Exposure: No Smoking risk assessment performed?: Yes Alcohol Intake: current Alcohol Intake frequency: a few times a week Details: quit with Drug use: Daily Substance use type: marijuana Details: Pt reports no use today; last t-1 Household members: significant other and other Details: S-Boyce. 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 Date GA/Weeks # Outcome Route Wgt Sex Labor Lgth Anesthes ia Location [facility] 08/28/17 34 Successful 3260.195 g Male Ronnie [place] 11/27/19 35 No Successful 2415.011 g Male javier casanova Delivery Date: 08/28/17 Last Updated by: Vonda Benavides CNM 34 weeks, for placental abruption general anesthesia, IOL for severe preeclampsia. Labetalol PO after delivery x 4 weeks. Exam Narrative Exam Narrative: Constitutional: Alert and oriented x3. Appears stated age. Obese body habitus. Head: Normocephalic, no trauma. Eyes: Pupils PERRL, Red reflex noted, EOM's intact. Eyelids symmetrical without lesions, discharge, or swelling. ENT: Bilateral TM's WNL, External ear normal to inspection, no mastoid TTP, swelling, or erythema, Nasal turbinates WNL, no nasal discharge. Normal dentition, Posterior pharynx WNL, no exudate. Chest: RRR, Normal S1, S2, distal pulses intact. Resp: Lungs clear to auscultation bilaterally, no wheezes, rales, or rhonchi. Abdomen: Soft, non-distended, Normoactive bowel sounds all 4 quads. Musculoskeletal: Normal gait, 5/5 strength to all four extremities. Skin: No suspicious rashes or lesions. Capillary refill less than 2 sec. Neurologic: Cranial nerves II-XII intact. Alert and oriented x 3. Motor: No deficits noted. Sensory: Intact bilaterally all 4 extremities. Reflexes: DTR's intact bilaterally.. Hematologic/Lymphatic: No ecchymosis, no lymphadenopathy. General: bimanual renal exam normal bilaterally External Female Exam: normal external appearance Speculum Exam - Vagina: abnormal vaginal discharge white, no foreign bodies, No vaginal bleeding and no masses Speculum Exam - Cervix: normal appearance of the cervix, closed and nontender Bimanual Exam- Vagina & Uterus: No tender Bimanual Exam- Adnexa, other: normal adnexae OB/External & Speculum: no foreign bodies and No vaginal bleeding Course Vital Signs Vital signs: Vital Signs Pulse 53 L 04/29/21 17:37 Respiratory Rate 18 04/29/21 17:37 Blood Pressure 144/85 H 04/29/21 17:37 Pulse Oximetry 100 04/29/21 17:37 Pulse 53 L 04/29/21 17:37 Respiratory Rate 18 04/29/21 17:37 Respiratory Effort Non-Labored 04/29/21 17:41 Blood Pressure 144/85 H 04/29/21 17:37 Blood Pressure Position Sitting 04/29/21 17:37 Pulse Oximetry 100 04/29/21 17:37 Oxygen Delivery Method Room Air 04/29/21 17:37 Oxygen Flow Rate 0 04/29/21 17:37 Lab/Test Results Lab/Test Results: Laboratory Tests Range/Units 04/29/21 17:47 Urine Color (Yellow) Yellow Urine Clarity (Clear) Clear Urine pH (5-8) 6.0 Ur Specific [place] (1.005-1.025) 1.010 Urine Protein (Negative) mg/dL Negative Urine Ketones (Negative) mg/dL Negative Urine Blood (Negative) Negative Urine Nitrite (Negative) Negative Urine Bilirubin (Negative) Negative Urine Urobilinogen (Up TO 0.2) EU/dL 0.2 Ur Leukocyte Esterase (Negative) Negative Urine Glucose (Negative) mg/dL Negative PAWSS Have you Been Recently Intoxicated or Drunk Within the Last 30 days?: No Have you Ever Experienced Previous Episodes of Alcohol Withdrawal?: No Have you ever Experienced Withdrawal Seizures?: No Have you ever Experienced Delirium Tremens(DT)s?: No Have you ever undergone Alcohol Rehabilitation Treatment (i.e, inpt ot outpatient treatment programs)?: No Have you ever Experienced Blackouts?: Yes Have you ever Combined Alcohol with other Downers within the last 90 days?: No Have you ever Combined Alcohol with any other Substance of Abuse during the last 90 days?: Yes Positive Blood Alcohol level on Presentation? [PCS.BAL]: No Evidence of Increased Autonomic Activity (i.e. HR>120, tremor, sweating, agitation, nausea)?: No Result: 3
[2021-05-01 15:13] LABS: Chlamydia Result Negative (Negative); GC Result Negative (Negative)
== END 2021-04-29 19:25 | disposition home or self-care (01) ==
PROVIDERS: Emergency Provider Registered Nurse Emergency
DX: R30.0 Dysuria (principal); R10.2 Pelvic and perineal pain
CPT/HCPCS: 81025; 87491; 87591; 99284; 81003; 87480; 87510; 87660; 99283

== ENCOUNTER 2021-08-31 11:36 | Emergency (ER) | payer MEDICAID, SELFPAY ==
[2021-08-31 11:40] VITALS: BP 136/85; PULSE 73; RESP 14; TEMP 36.8; O2SAT 99
--- NOTE | 2021-08-31 12:00 | DI.RAD_ITS ---
Exam(s) XR HAND LT COMPLETE EXAM: XR HAND LT COMPLETE CLINICAL HISTORY: Hyperextension injury, pain swelling. TECHNIQUE: 2D digital imaging was performed of the left hand. Three views were obtained. AP, later al and oblique views were obtained. COMPARISON: No exams were available for comparison FINDINGS: BONES: No acute fracture is present. No bony destructive lesion is seen. JOINTS: No dislocation present. SOFT TISSUE: Normal. IMPRESSION: Unremarkable radiographs of the left hand. DATA REPOSITORY: RADIATION DOSE DELIVERED:
--- NOTE | 2021-08-31 12:01 | ED.GENADUL_ITS ---
Discharge Plan Disposition Patient Disposition: HOME Condition: Stable Discharge Details Clinical Impression: Left wrist sprain Primary Care Provider: Michelle,Local ED Provider: Tanya Lepe Home Meds and New Rx's Prescriptions: No Action sertraline [Zoloft] 50 mg tablet 50 mg PO DAILY trazodone 50 mg tablet 50 mg PO QHS PRN fluconazole [Diflucan] 150 mg tablet 150 mg PO Q3D Qty: 2 0RF Rx Instructions: Take one tab today and repeat in 3 days Discharge Instructions Instructions: Wrist Sprain (ED) Additional Instructions: Rest, Ice, Compression, Elevation above level of heart when sitting or laying down. Wear the wrist splint as needed for comfort. Please take Tylenol or Ibuprofen with food every 4-6 hours as needed for pain and swelling. Follow up with primary care provider in 3-5 days. Return to ED sooner if any worsening or concerns. Increase oral fluids. X-ray shows no acute bony abnormality no fractures or broken bones at this time. Discharge Data Discharge Date/Time-TO BE ENTERED AT DEPARTURE: 08/31/21 13:10 Medical Decision Making 21-year-old female presents to the ER with chief complaint of left hand and forearm pain after reportedly waking up to her bending her hand back in the middle of the night on Wednesday. She reports increased pain and soreness and swelling since then. XR hand ordered, Ibuprofen 600mg PO. X-rays unremarkable no evidence of fracture or dislocation. No acute bony abnormality. [place] wrist splint given instructed on RICE procedures and follow-up as needed. Patient verbalized understanding. This text was generated using [employer] dictation system, please disregard any oddities of phrase or misspellings. Imaging Data Radiologic Study: Imaging: X-Ray Radiologist's impression: EXAM:? XR HAND LT COMPLETE CLINICAL HISTORY: ? Hyperextension injury, pain swelling.? TECHNIQUE:? 2D digital imaging was performed of the left hand.? Three views were obtained.? AP, lateral and oblique views were obtained. COMPARISON:? No exams were available for comparison FINDINGS: BONES: No acute fracture is present. No bony destructive lesion is seen. JOINTS: No dislocation present.? SOFT TISSUE: Normal. IMPRESSION: Unremarkable radiographs of the left hand. HPI General Mode of arrival: ambulatory . Date/Time Provider Initiated Documentation: 08/31/21 11:42 . Limitations to Documentation: no limitations . Information obtained by: patient, RN notes reviewed and old records reviewed . HPI Narrative: 21-year-old female presents to the ER with chief complaint of left hand and forearm pain after reportedly waking up to her bending her hand back in the middle of the night on Wednesday. She reports increased pain and soreness and swelling since then. She states that her has a history of PTSD and has flashbacks. She denies any other injuries denies any elbow pain or shoulder pain. Has not taken anything this morning for pain. She last took some anti-inflammatory last night. Past medical history include adjustment disorder, UTI, PID, obesity status post , Related Data Home Medications Medication Instructions Recorded Confirmed sertraline 50 mg tablet (Zoloft) 50 mg PO DAILY 10/25/20 08/31/21 trazodone 50 mg tablet 50 mg PO QHS PRN 10/25/20 08/31/21 fluconazole 150 mg tablet 150 mg PO Q3D #2 tabs 01/01/21 01/01/21 (Diflucan) Previous Rx's Medication Instructions Recorded fluconazole 150 mg tablet 150 mg PO Q3D #2 tabs 01/01/21 (Diflucan) Allergies Allergy/AdvReac Type Severity Reaction Status Date / Time Latex, Natural Rubber Allergy Severe tongue Verified 08/31/21 11:42 gets itchy and get hard to breath. Penicillins Allergy Severe hives and Verified 08/31/21 11:42 swelling General Stated Complaint: Orthopedic ROXY: 4 Review of Systems Musculoskeletal Musculoskeletal: Reports as per HPI, Denies back pain, Denies myalgias, Denies deformity, Reports arthralgias, Reports joint swelling and Denies loss of height PFSH All Active Problems (Updated 08/31/21 @ 12:39 by Tanya Lepe NP) Left wrist sprain (Acute) UTI (urinary tract infection) (Acute) Retained intrauterine contraceptive device (IUD) (Acute) Yeast vaginitis (Acute) Attempted IUD removal, unsuccessful (Acute) Vaginismus (Acute) Pelvic pain (Acute) Acute PID (pelvic inflammatory disease) (Acute) UTI (urinary tract infection) (Acute) Bacterial vaginosis (Acute) Dysuria (Acute) Abdominal pain (Acute) Acute adjustment disorder with mixed anxiety and depressed mood (Acute) S/P cholecystectomy (Acute) Back pain (Acute) S/P spinal fracture, chiropractic in the past History of spinal fracture (Acute) playing football Previous section (Chronic) 11/27/19 RC/S SROM 35+w EGA. Lupe Thakkar Obesity (Chronic) bmi 47 Surgical History Status post repeat low transverse section Family History Mother Diabetes Heart disease CHF, age 55 Kidney failure Alcohol abuse Thyroid condition Maternal Grandmother Heart disease CHF, age 50s. Diabetes Kidney failure Social History Smoking/Tobacco Use Status: Never Second Hand Exposure: No Smoking risk assessment performed?: Yes Alcohol Intake: current Alcohol Intake frequency: a few times a week Details: quit with Drug use: Daily Substance use type: marijuana Details: Pt reports no use today; last t-1 Household members: significant other and other Details: S-Boyce. 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 Date GA/Weeks # Preg Succ Route Wgt Sex Labor Lgth Anesth esia Location [facility] 08/28/17 34 3260.195 g Male Be jessica [place] 11/27/19 35 No 2415.011 g Male cyndee casanova Delivery Date: 08/28/17 Last Updated by: Vonda Benavides CNM 34 weeks, for placental abruption general anesthesia, IOL for severe preeclampsia. Labetalol PO after delivery x 4 weeks. Exam Extrem General: normal to inspection Right upper extremity: normal to inspection Left upper extremity: normal capillary refill, elbow/forearm Details: normal to inspection and normal ROM; no tenderness and no swelling, wrist Details: normal to inspection and normal ROM and hand Details: normal to inspection, normal capillary refill, neuromotor exam normal, neurosensory exam normal, tendon exam normal, tenderness (generalized with making a fist) and swelling; no abrasions, no ecchymosis and no crepitus; no edema Course Vital Signs Vital signs: Vital Signs Temperature 36.8 C 08/31/21 11:40 Pulse 73 08/31/21 11:40 Respiratory Rate 14 08/31/21 11:40 Blood Pressure 136/85 08/31/21 11:40 Pulse Oximetry 99 08/31/21 11:40 Temperature 36.8 C 08/31/21 11:40 Temperature Source Tympanic 08/31/21 11:40 Pulse 73 08/31/21 11:40 Respiratory Rate 14 08/31/21 11:40 Respiratory Effort Non-Labored 08/31/21 11:43 Blood Pressure 136/85 08/31/21 11:40 Blood Pressure Position Sitting 08/31/21 11:40 Pulse Oximetry 99 08/31/21 11:40 Oxygen Delivery Method Room Air 08/31/21 11:40 Oxygen Flow Rate 0 08/31/21 11:40 Pain Level 8 08/31/21 11:46 PAWSS Have you Been Recently Intoxicated or Drunk Within the Last 30 days?: No Have you Ever Experienced Previous Episodes of Alcohol Withdrawal?: No Have you ever Experienced Withdrawal Seizures?: No Have you ever Experienced Delirium Tremens(DT)s?: No Have you ever Experienced Blackouts?: No Have you ever Combined Alcohol with other Downers within the last 90 days?: No Have you ever Combined Alcohol with any other Substance of Abuse during the last 90 days?: No Positive Blood Alcohol level on Presentation? [PCS.BAL]: No Evidence of Increased Autonomic Activity (i.e. HR>120, tremor, sweating, agitation, nausea)?: No Result: 0
[2021-08-31] MEDS: Ibuprofen 600 MG TAB PO (12:06)
--- NOTE | 2021-08-31 12:40 | DI.VRAD_ITS ---
PROCEDURE INFORMATION: Exam: XR Left Hand Exam date and time: 08/31/2021 12:18 PM Age: 21 years old Clinical indication: Other: Hyperextension injury, pain swelling TECHNIQUE: Imaging protocol: Radiologic exam of the Left hand. Views: 3 or more views. COMPARISON: No relevant prior studies available. FINDINGS: Bones/joints: Normal. No fracture, dislocation or osseous abnormality. No arthropathic changes. Soft tissues: No swelling. IMPRESSION: Normal extremity. Dictated and Authenticated by: Ramón Manzano MD. Ordering:CED Martínez MD
== END 2021-08-31 13:10 | disposition home or self-care (01) ==
PROVIDERS: Emergency Provider Registered Nurse Emergency
DX: S63.502A Unspecified sprain of left wrist, initial encounter (principal); X50.1XXA Overexertion from prolonged static or awkward postures, initial encounter; Y93.89 Activity, other specified
CPT/HCPCS: 99283; 73130

== ENCOUNTER 2022-01-20 15:45 | Outpatient (REF) | payer MEDICAID, SELFPAY ==
[2022-01-20 16:13] LABS: Abs Immature Grans 0.03 10^3/uL (0.0-0.06); Absolute Basophil Count 0.02 10^3/uL (0.0-0.2); Absolute Eosinophil Count 0.07 10^3/uL (0.0-0.7); Absolute Lymphocyte Count 3.29 10^3/uL (1.2-3.4); Absolute Monocyte Count 0.46 10^3/uL (0.1-0.8); Absolute Neutrophil Count 4.88 10^3/uL (1.2-6.7); Basophils % 0.2; Eosinophils % 0.8; HCT 41.9 % (36.0-46.0); HGB 14.2 g/dL (11.2-15.7); Immature Grans % 0.3; Lymphocytes % 37.6; MCH 29.8 pg (27.0-33.0); MCHC 33.9 % (32.0-36.0); MCV 88 fL (80-95); MPV 12.1 fL (8.0-11.0); Monocytes % 5.3; Neutrophils % 55.8; Platelet Count 238 10^3/uL (130-400); RBC 4.76 10^6/uL (3.93-5.22); RDW 12.1 % (11.7-14.6); RDW-SD 39.1 fL; WBC 8.75 10^3/uL (4.4-10.8)
[2022-01-20 16:44] LABS: ALT 28 U/L (14-59); AST 44 U/L (15-37); Albumin 4.1 g/dL (3.4-5.0); Alkaline Phosphatase 72 U/L (46-116); Anion Gap 8.7 mmol/L (3-11); BUN 9 mg/dL (7-18); Bilirubin, Total 0.3 mg/dL (0.2-1.0); CO2 26.3 mmol/L (21.0-32.0); CREATININE 0.7 mg/dL (0.55-1.02); Calcium 9.5 mg/dL (8.5-10.1); Chloride 102 mmol/L (98-107); Estimated GFR 125.33 (mL/min/1.73m2); Glucose 90 mg/dL (74-106); Potassium 3.8 mmol/L (3.5-5.1); Sodium 137 mmol/L (136-145); TSH (W/Ref FT4) 2.61 uIU/mL (0.36-3.74); Total Protein 8.2 g/dL (6.4-8.2)
[2022-01-20 17:06] LABS: Iron 49 ug/dL (50-170); Total Iron Binding Capacity 287 ug/dL (250-450); Transferrin Sat 17 % (15-50)
== END 2022-01-20 15:46 | disposition home or self-care (01) ==
LOC: NCHCN 15:45
PROVIDERS: PCP Nurse Practitioner Family; Visit Provider Nurse Practitioner Family
DX: E66.01 Morbid (severe) obesity due to excess calories (principal); F31.30 Bipolar disorder, current episode depressed, mild or moderate severity, unspecified; Z83.3 Family history of diabetes mellitus; Z13.1 Encounter for screening for diabetes mellitus; Z76.0 Encounter for issue of repeat prescription; Z71.89 Other specified counseling
CPT/HCPCS: 80053; 83540; 83550; 84443; 85025

== ENCOUNTER 2022-11-19 08:27 | Emergency (ER) | payer MEDICAID, SELFPAY ==
[2022-11-19 08:34] VITALS: BP 128/83; PULSE 75; RESP 18; TEMP 36.6; O2SAT 99
--- NOTE | 2022-11-19 08:45 | DI.US_ITS ---
Exam(s) US ABDOMEN LIMITED EXAM: US ABDOMEN LIMITED CLINICAL HISTORY: 12w preg, severe RUQ abd pain TECHNIQUE: Ultrasound abdomen performed using standard protocol. COMPARISON: CT CT ABDOMEN PELVIS W from 10/28/2020 US POCUS EXAM from 11/03/2022 FINDINGS: There is no ascites evident. LIVER: There are no hepatic lesions evident nor dilatation of intrahepatic ducts. GALLBLADDER/BILIARY: Gallbladder is again noted be surgically absent. The common hepatic duct isnot dilated, measuring 3-4mm at the level of guevara hepatis. PANCREAS: There is no evidence of pancreatic mass nor dilatation of the pancreatic duct. RIGHT KIDNEY:No evidence of solid mass, calculus, nor hydronephrosis. No cortical cysts evident. IMPRESSION: 1. Gallbladder surgically absent. Biliary tree is not dilated 2. No other significant ultrasound findings in the right upper quadrant. 3. There is no ascites. DATA REPOSITORY:
--- NOTE | 2022-11-19 10:05 | ED.GENADUL_ITS ---
Discharge Plan Disposition Patient Disposition: Home Condition: Good Discharge Details Clinical Impression: Acute chest wall pain Primary Care Provider: RENE COOMBS ED Provider: Tierney Maldonado Home Meds and New Rx's Prescriptions: No Action [id number]-new-rgvs oil 400 mcg-35 mg -25 mg-5 mg tablet,chewable PO prenat 115-iron hvu-lvrmw-ooz 29 mg iron- 1 mg-25 mg Tablet 1 tab PO DAILY Discharge Instructions Instructions: Chest Wall Pain (ED) Additional Instructions: Call your primary care doctor today to schedule an appointment to follow up on your visit today. Discuss whether or not you should start a magnesium supplement. Return to the emergency department for new or worsening symptoms, including new/different/worse pain, difficulty breathing, inability to keep down fluids, or if you have any other concerns. Referrals: RENE COOMBS, [employer] [Primary Care Provider] - Medical Decision Making 22yo F at 12 weeks gestation wtih hx preeclampsia, PID, prior cholecystetcomy presenting with RUQ pain constant and worsening for two weeks with associated vomiting and diarrhea. Vital signs reassuring, FHR 150's-160's. Not septic. RUQ TTP on exam with no peritoneal signs. No overlying rash. Ultrasound as below, no dilation of biliary tree, normal liver; no subcapsular hematoma. Labs reviewed as below, CBC & CMP reassuring no leukocytosis, normal LFTS. Normal lipase. Not pancreatitis. UA negative for infection. No red cells to suggest nephroliathias. With reassuring laboratory workup and imaging, favor MSK etiology for reproducible chest wall/upper abdominal tenderness. Given tylenol and lidocaine patch for pain; on reassessment reports pain improved though remains present. Discharged home; discharge instructions including return precautions were reviewed with patient who verbalized understanding. All questions were answered and they are in full agreement with the plan. Imaging Data Radiologic Study: Imaging: Ultrasound Radiologist's impression: IMPRESSION: 1.? Gallbladder surgically absent.? Biliary tree is not dilated 2.? No other significant ultrasound findings in the right upper quadrant. 3.? There is no ascites. Lab Data Lab results reviewed: Yes I reviewed the patient's lab results. Labs: Laboratory Tests Range/Units 11/19/22 11/19/22 11/19/22 09:16 10:25 10:25 WBC (4.4-10.8) 10^3/uL 9.21 RBC (3.93-5.22) 10^6/uL 4.81 Hgb (11.2-15.7) g/dL 14.5 Hct (36.0-46.0) % 41.8 MCV (80-95) fL 87 MCH (27.0-33.0) pg 30.1 MCHC (32.0-36.0) % 34.7 RDW (11.7-14.6) % 12.4 Plt Count (130-400) 10^3/uL 203 MPV (8.0-11.0) fL 10.6 Immature Gran % 0.3 Neutrophils % 65.1 Lymphocytes % 28.9 Monocytes % 5.0 Eosinophils % 0.4 Basophils % 0.3 Nucleated RBC % (0.0-0.3) % 0.0 Absolute Neutrophils (1.2-6.7) 10^3/uL 5.99 Absolute Lymphocytes (1.2-3.4) 10^3/uL 2.66 Absolute Monocytes (0.1-0.8) 10^3/uL 0.46 Absolute Eosinophils (0.0-0.7) 10^3/uL 0.04 Absolute Basophils (0.0-0.2) 10^3/uL 0.03 Sodium (136-145) mmol/L 136 Potassium (3.5-5.1) mmol/L 3.7 Chloride (98-107) mmol/L 102 Carbon Dioxide (21.0-32.0) mmol/L 25.3 Anion Gap (3-11) mmol/L 8.7 BUN (7-18) mg/dL 7 Creatinine (0.55-1.02) mg/dL 0.7 Est GFR (CKD-EPI 2020) (mL/min/1.73m2) 124.55 Glucose (74-106) mg/dL 88 Calcium (8.5-10.1) mg/dL 9.7 Magnesium (1.8-2.4) mg/dL 1.7 L Total Bilirubin (0.2-1.0) mg/dL 0.4 AST (15-37) U/L 37 ALT (14-59) U/L 32 Alkaline Phosphatase (46-116) U/L 59 Lactate Dehydrogenase Cancelled 157 Total Protein (6.4-8.2) g/dL 8.3 H Albumin (3.4-5.0) g/dL 3.7 Lipase (16-77) U/L 52 Urine Color (Yellow) Urine Clarity (Clear) Urine pH (5-8) Ur Specific [place] (1.005-1.025) Urine Protein (Negative) mg/dL Urine Ketones (Negative) mg/dL Urine Blood (Negative) Urine Nitrite (Negative) Urine Bilirubin (Negative) Urine Urobilinogen (Up to 0.2) mg/dL Ur Leukocyte Esterase (Negative) Urine Glucose (Negative) mg/dL Range/Units 11/19/22 11:34 WBC (4.4-10.8) 10^3/uL RBC (3.93-5.22) 10^6/uL Hgb (11.2-15.7) g/dL Hct (36.0-46.0) % MCV (80-95) fL MCH (27.0-33.0) pg MCHC (32.0-36.0) % RDW (11.7-14.6) % Plt Count (130-400) 10^3/uL MPV (8.0-11.0) fL Immature Gran % Neutrophils % Lymphocytes % Monocytes % Eosinophils % Basophils % Nucleated RBC % (0.0-0.3) % Absolute Neutrophils (1.2-6.7) 10^3/uL Absolute Lymphocytes (1.2-3.4) 10^3/uL Absolute Monocytes (0.1-0.8) 10^3/uL Absolute Eosinophils (0.0-0.7) 10^3/uL Absolute Basophils (0.0-0.2) 10^3/uL Sodium (136-145) mmol/L Potassium (3.5-5.1) mmol/L Chloride (98-107) mmol/L Carbon Dioxide (21.0-32.0) mmol/L Anion Gap (3-11) mmol/L BUN (7-18) mg/dL Creatinine (0.55-1.02) mg/dL Est GFR (CKD-EPI 2020) (mL/min/1.73m2) Glucose (74-106) mg/dL Calcium (8.5-10.1) mg/dL Magnesium (1.8-2.4) mg/dL Total Bilirubin (0.2-1.0) mg/dL AST (15-37) U/L ALT (14-59) U/L Alkaline Phosphatase (46-116) U/L Lactate Dehydrogenase Total Protein (6.4-8.2) g/dL Albumin (3.4-5.0) g/dL Lipase (16-77) U/L Urine Color (Yellow) Yellow Urine Clarity (Clear) Clear Urine pH (5-8) 6.5 Ur Specific [place] (1.005-1.025) 1.025 Urine Protein (Negative) mg/dL Negative Urine Ketones (Negative) mg/dL Negative Urine Blood (Negative) Negative Urine Nitrite (Negative) Negative Urine Bilirubin (Negative) Negative Urine Urobilinogen (Up to 0.2) mg/dL 0.2 Ur Leukocyte Esterase (Negative) Negative Urine Glucose (Negative) mg/dL Negative HPI General Mode of arrival: EMS . Date/Time Provider Initiated Documentation: 11/19/22 08:38 . Limitations to Documentation: no limitations . Information obtained by: patient . HPI Narrative: 22yo F at 12 weeks gestation presenting with RUQ pain constant and worsening for two weeks. Associated vomiting and diarrhea for the past two weeks, nonbloody, nonbilious. No lower abdominal pain, vaginal bleeding, or vaginal discharge. This has been uncomplicated thus far; had preelampsia in prior pregnancies. No fevers, chills, rash, dysuria, hematuria, headache, vision changes, numbness, weakness, or other concerns. Prior cholecystectomy . Related Data Home Medications Medication Instructions Recorded Confirmed [id number] 400 mcg-om3 35 mg-dha 25 tab PO 10/07/22 10/23/22 mg-epa 5 mg-fish oil chewable tablet vit 115-iron fum 29 mg 1 tab PO DAILY 11/19/22 11/19/22 iron-folic acid 1 mg-dss 25 mg tablet Allergies Allergy/AdvReac Type Severity Reaction Status Date / Time Latex, Natural Rubber Allergy Severe tongue Verified 11/19/22 08:41 gets itchy and get hard to breath. Penicillins Allergy Severe hives and Verified 11/19/22 08:41 swelling General Stated Complaint: Abd Prob ROXY: 3 Review of Systems Narrative: see HPI PFSH All Active Problems (Updated 10/02/22 @ 08:44 by Vonda Benavides CNM) Acute chest wall pain (Acute) UTI (urinary tract infection) (Acute) Pelvic pain (Acute) UTI (urinary tract infection) (Acute) Dysuria (Acute) Acute adjustment disorder with mixed anxiety and depressed mood (Acute) S/P cholecystectomy (Acute) Medical History (Updated 11/19/22 @ 12:11 by Tierney Maldonado MD) Abdominal pain Acute PID (pelvic inflammatory disease) Back pain S/P spinal fracture, chiropractic in the past Depression History of anxiety History of gestational hypertension History of spinal fracture playing football Obesity bmi 47 Retained intrauterine contraceptive device (IUD) Vaginismus Surgical History (Updated 10/02/22 @ 08:44 by Vonda Benavides CNM) Previous section 11/27/19 RC/S SROM 35+w EGA. Lupe Thakkar Status post repeat low transverse section Family History Mother Diabetes Heart disease CHF, age 55 Kidney failure Alcohol abuse Thyroid condition Maternal Grandmother Heart disease CHF, age 50s. Diabetes Kidney failure Social History Smoking/Tobacco Use Status: Never Second Hand Exposure: No Smoking risk assessment performed?: Yes Alcohol Intake: current Alcohol Intake frequency: a few times a week Details: quit with Drug use: Daily Substance use type: marijuana Details: Pt reports no use today; last t-1 Household members: significant other and other Details: S-Boyce. 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 Date GA/Weeks # Preg Succ Route Wgt Sex Labor Lgth Anesth esia Location [facility] 08/28/17 34 3260.195 g Male [place] 11/27/19 35 No 2415.011 g Male cyndee casanova Delivery Date: 08/28/17 Last Updated by: Vonda Benavides CNM 34 weeks, for placental abruption general anesthesia, IOL for severe preeclampsia. Labetalol PO after delivery x 4 weeks. Exam Narrative Exam Narrative: General: Alert, well appearing Head: Normocephalic, atraumatic Neck: Trachea midline, Neck supple. ENT: MMM. No oropharygeal lesions or exudate. Cardiac: RRR, no murmurs appreciated Resp: No respiratory distress. CTAB. Abd: Obese. Soft, non-distended. Right chest wall and RUQ TTP with no rebound or guarding : No suprapubic tenderness. No CVA tenderness. Extremities: No deformities. No peripheral edema. Neurologic: GCS 15. Moves all extremities freely against gravity Course Vital Signs Vital signs: Vital Signs Temperature 36.6 C 11/19/22 08:34 Pulse 75 11/19/22 08:34 Respiratory Rate 18 11/19/22 08:34 Blood Pressure 128/83 11/19/22 08:34 Pulse Oximetry 99 11/19/22 08:34 Temperature 36.6 C 11/19/22 08:34 Pulse 75 11/19/22 08:34 Respiratory Rate 18 11/19/22 08:34 Blood Pressure 128/83 11/19/22 08:34 Blood Pressure Position Sitting 11/19/22 08:34 Pulse Oximetry 99 11/19/22 08:34 Oxygen Delivery Method Room Air 11/19/22 08:34 Oxygen Flow Rate 0 11/19/22 08:34 Pain Level 8 11/19/22 08:34
[2022-11-19] MEDS: ACETAMINOPHEN 1,000 MG/100 ML BTL 400 MG IVPB (10:30)
[2022-11-19 10:35] LABS: Abs Immature Grans 0.03 10^3/uL (0.0-0.06); Absolute Basophil Count 0.03 10^3/uL (0.0-0.2); Absolute Eosinophil Count 0.04 10^3/uL (0.0-0.7); Absolute Lymphocyte Count 2.66 10^3/uL (1.2-3.4); Absolute Monocyte Count 0.46 10^3/uL (0.1-0.8); Absolute Neutrophil Count 5.99 10^3/uL (1.2-6.7); Basophils % 0.3; Eosinophils % 0.4; HCT 41.8 % (36.0-46.0); HGB 14.5 g/dL (11.2-15.7); Immature Grans % 0.3; Lymphocytes % 28.9; MCH 30.1 pg (27.0-33.0); MCHC 34.7 % (32.0-36.0); MCV 87 fL (80-95); MPV 10.6 fL (8.0-11.0); Neutrophils % 65.1; Platelet Count 203 10^3/uL (130-400); RBC 4.81 10^6/uL (3.93-5.22); RDW 12.4 % (11.7-14.6); RDW-SD 39.5 fL; WBC 9.21 10^3/uL (4.4-10.8)
[2022-11-19 10:53] LABS: ALT 32 U/L (14-59); AST 37 U/L (15-37); Albumin 3.7 g/dL (3.4-5.0); Alkaline Phosphatase 59 U/L (46-116); Anion Gap 8.7 mmol/L (3-11); BUN 7 mg/dL (7-18); Bilirubin, Total 0.4 mg/dL (0.2-1.0); CO2 25.3 mmol/L (21.0-32.0); CREATININE 0.7 mg/dL (0.55-1.02); Calcium 9.7 mg/dL (8.5-10.1); Chloride 102 mmol/L (98-107); Estimated GFR 124.55 (mL/min/1.73m2); Glucose 88 mg/dL (74-106); LDH 157 U/L (81-234); Lipase 52 U/L (16-77); Magnesium 1.7 mg/dL (1.8-2.4); Potassium 3.7 mmol/L (3.5-5.1); Sodium 136 mmol/L (136-145); Total Protein 8.3 g/dL (6.4-8.2)
[2022-11-19 11:46] LABS: Bilirubin Negative (Negative); Blood Negative (Negative); Clarity Clear (Clear); Glucose Negative (Negative); Ketones Negative (Negative); Leukocyte Esterase Negative (Negative); Nitrite Negative (Negative); Specific Gravity 1.025 (1.005-1.025); Urobilinogen 0.2 mg/dL (Up to 0.2); pH 6.5 (5-8)
[2022-11-19] MEDS: Lidocaine 5% Patch 1 PATCH TP (12:46)
== END 2022-11-19 12:48 | disposition home or self-care (01) ==
PROVIDERS: Emergency Provider Student in an Organized Health Care Education/Training Program; PCP Nurse Practitioner Family
DX: O26.891 Other specified pregnancy related conditions, first trimester (principal); R10.11 Right upper quadrant pain; R19.7 Diarrhea, unspecified; R11.10 Vomiting, unspecified; R07.89 Other chest pain; Z3A.12 12 weeks gestation of pregnancy
CPT/HCPCS: 80053; 83690; 99284; 76705; 81003; 83615; 83735; 85025; J0131

== ENCOUNTER 2022-11-24 01:58 | Outpatient (CLI) | payer MEDICAID, SELFPAY ==
[2022-11-24 12:39] LABS: Panorama Kit Sent via Fed Ex
[2022-11-24 12:47] LABS: Abs Immature Grans 0.01 10^3/uL (0.0-0.06); Absolute Basophil Count 0.03 10^3/uL (0.0-0.2); Absolute Eosinophil Count 0.03 10^3/uL (0.0-0.7); Absolute Lymphocyte Count 2.31 10^3/uL (1.2-3.4); Absolute Monocyte Count 0.56 10^3/uL (0.1-0.8); Absolute Neutrophil Count 5.33 10^3/uL (1.2-6.7); Basophils % 0.4; Eosinophils % 0.4; HCT 38.3 % (36.0-46.0); HGB 13.3 g/dL (11.2-15.7); Immature Grans % 0.1; Lymphocytes % 27.9; MCH 30.1 pg (27.0-33.0); MCHC 34.7 % (32.0-36.0); MCV 87 fL (80-95); MPV 11.9 fL (8.0-11.0); Monocytes % 6.8; Neutrophils % 64.4; Platelet Count 215 10^3/uL (130-400); RBC 4.42 10^6/uL (3.93-5.22); RDW 12.3 % (11.7-14.6); WBC 8.27 10^3/uL (4.4-10.8)
[2022-11-24 13:11] LABS: Glucose,1 Hr (Glucola) 109 mg/dL (80-140)
[2022-11-24 13:24] LABS: ALT 40 U/L (14-59); AST 46 U/L (15-37); Albumin 3.3 g/dL (3.4-5.0); Alkaline Phosphatase 57 U/L (46-116); Anion Gap 10.9 mmol/L (3-11); BUN 7 mg/dL (7-18); Bilirubin, Total 0.4 mg/dL (0.2-1.0); CO2 23.1 mmol/L (21.0-32.0); CREATININE 0.6 mg/dL (0.55-1.02); Calcium 9.1 mg/dL (8.5-10.1); Chloride 102 mmol/L (98-107); Estimated GFR 129.27 (mL/min/1.73m2); Glucose 110 mg/dL (74-106); Potassium 3.4 mmol/L (3.5-5.1); Sodium 136 mmol/L (136-145); TSH (W/Ref FT4) 1.61 uIU/mL (0.36-3.74); Total Protein 7.6 g/dL (6.4-8.2)
[2022-11-25 10:28] LABS: Varicella IgG Antibody Positive (See Note)
[2022-11-25 10:32] LABS: HIV-1/2 Ag & Ab Screen Negative (Negative)
[2022-11-25 10:35] LABS: Rubella IgG Ab (UVM) Positive (See Note)
[2022-11-25 11:01] LABS: Hepatitis B Surface Ag Negative (Negative)
[2022-11-25 12:40] LABS: Hepatitis C Ab w Rflx HCV PCR Negative (Negative)
[2022-11-26 00:04] LABS: Syphilis IgG w/Reflex Nonreactive (Nonreactive)
[2022-12-09 18:30] LABS: Result Summary NEGATIVE; Specimen WB Whole Blood
== END 2022-11-24 01:59 | disposition home or self-care (01) ==
LOC: LBO 01:58
PROVIDERS: Advanced Practice Midwife; PCP Nurse Practitioner Family; Visit Provider Advanced Practice Midwife
DX: Z34.91 Encounter for supervision of normal pregnancy, unspecified, first trimester; Z83.49 Family history of other endocrine, nutritional and metabolic diseases
CPT/HCPCS: 36415; 80053; 81220; 81222; 82950; 86787; 86803; 86850; 86900; 86901; 87340; 87389; 84443; 85025; 86762; 86780

== ENCOUNTER 2022-11-24 12:53 | Outpatient (REF) | payer MEDICAID, SELFPAY ==
[2022-11-24 15:29] LABS: *AMPHETAMINES SCREEN URINE Negative (Negative); *BARBITURATES SCREEN URINE Negative (Negative); *BENZODIAZEPINES SCREEN URINE Negative (Negative); Cannabinoids THC Positive (Negative); Cocaine Screen,Urine Negative (Negative); METHADONE URINE SCREEN Negative (Negative); OPIATES URINE SCREEN Negative (Negative); Tricyclic Antidepressants Negative (Negative)
[2022-11-25 15:20] LABS: Chlamydia Result Negative (Negative); GC Result Negative (Negative)
== END 2022-11-24 12:54 | disposition home or self-care (01) ==
LOC: LBN 12:53
PROVIDERS: PCP Nurse Practitioner Family; Visit Provider Advanced Practice Midwife
DX: Z34.91 Encounter for supervision of normal pregnancy, unspecified, first trimester (principal); Z83.49 Family history of other endocrine, nutritional and metabolic diseases
CPT/HCPCS: 80307; 87491; 87591; 87086; 87480; 87510; 87660

== ENCOUNTER 2022-12-09 11:16 | Outpatient (REF) | payer MEDICAID, SELFPAY | END 2022-12-09 11:17 | disposition home or self-care (01) | LOC: LBN 11:16 | PROVIDERS: PCP Nurse Practitioner Family; Visit Provider Advanced Practice Midwife | DX: N89.8 Other specified noninflammatory disorders of vagina (principal); O26.892 Other specified pregnancy related conditions, second trimester | CPT/HCPCS: 87480; 87510; 87660 ==

== ENCOUNTER 2023-01-09 19:32 | Emergency (ER) | payer MEDICAID, SELFPAY ==
[2023-01-09] VITALS (24 sets, daily range): BP systolic 122–168; BP diastolic 45–103; PULSE 45–63; RESP 13–31; TEMP 36.6; O2SAT 95–99
--- NOTE | 2023-01-09 19:45 | RT.EKG_ITS ---
APPROVED REPORT Exam: Resting ECG Reason for Exam: chest pain Patient Location: E HR:47 bpm ECG Measurements Heart Rate 47 AXIS SD 146 P 37 QRSd 110 QRS 26 QT 470 T 30 QTc 418 Conclusion Sinus bradycardia rate 47 normal axis no acute ischemic change
[2023-01-09 20:11] LABS: Abs Immature Grans 0.03 10^3/uL (0.0-0.06); Absolute Eosinophil Count 0.05 10^3/uL (0.0-0.7); Absolute Lymphocyte Count 2.64 10^3/uL (1.2-3.4); Absolute Monocyte Count 0.51 10^3/uL (0.1-0.8); Basophils % 0.2; Eosinophils % 0.4; HCT 38.5 % (36.0-46.0); HGB 13.3 g/dL (11.2-15.7); Immature Grans % 0.2; Lymphocytes % 21.4; MCH 30.2 pg (27.0-33.0); MCHC 34.5 % (32.0-36.0); MCV 88 fL (80-95); Monocytes % 4.1; Neutrophils % 73.7; Platelet Count 217 10^3/uL (130-400); RDW 12.4 % (11.7-14.6); RDW-SD 39.7 fL; WBC 12.35 10^3/uL (4.4-10.8)
[2023-01-09 20:13] LABS: Absolute Basophil Count 0.02 10^3/uL (0.0-0.2)
[2023-01-09 20:28] LABS: ALT 22 U/L (14-59); AST 31 U/L (15-37); Albumin 3.1 g/dL (3.4-5.0); Alkaline Phosphatase 58 U/L (46-116); Anion Gap 7.2 mmol/L (3-11); BUN 4 mg/dL (7-18); Bilirubin, Total 0.4 mg/dL (0.2-1.0); CO2 24.8 mmol/L (21.0-32.0); CREATININE 0.6 mg/dL (0.55-1.02); Calcium 9.1 mg/dL (8.5-10.1); Chloride 103 mmol/L (98-107); Estimated GFR 129.27 (mL/min/1.73m2); Glucose 99 mg/dL (74-106); Lipase 51 U/L (16-77); Potassium 3.5 mmol/L (3.5-5.1); Sodium 135 mmol/L (136-145); Total Protein 7.4 g/dL (6.4-8.2); Troponin I < 50 ng/L (<or=60)
[2023-01-09 20:31] LABS: Bilirubin Negative (Negative); Blood Negative (Negative); Clarity Clear (Clear); Glucose Negative (Negative); Ketones Negative (Negative); Leukocyte Esterase Negative (Negative); Nitrite Negative (Negative); Urobilinogen 0.2 mg/dL (Up to 0.2)
[2023-01-09 20:34] LABS: Magnesium 1.7 mg/dL (1.8-2.4)
[2023-01-09] MEDS: diphenhydrAMINE 50 MG/ML VIAL 12.5 MG IVP (20:37)
[2023-01-09] MEDS: Prochlorperazine 10 MG/2 ML VIAL IVP (20:37)
[2023-01-09] MEDS: Lactated Ringers 1,000 ML 1000 ML IV (20:37)
[2023-01-09] MEDS: FAMOTIDINE 20 MG in Normal Saline 100 ML 400 MG IVPB (20:37)
--- NOTE | 2023-01-09 20:54 | W.ED.GENAD ---
Discharge Plan Disposition Patient Disposition: Home Discharge Details Clinical Impression: Hyperemesis gravidarum, , Chest pain Primary Care Provider: RENE COOMBS ED Provider: Jossy Paniagua Home Meds and New Rx's Prescriptions: New metoclopramide HCl [Reglan] 10 mg tablet 10 mg PO Q6H PRNQty: 30 0RF Continued [id number]-[id number]-itd-ddka oil 400 mcg-35 mg -25 mg-5 mg tablet,chewable PO Discharge Instructions Instructions: Chest Pain (ED), (ED) Additional Instructions: Start taking Pepcid 20 mg daily I suspect your chest discomfort is partially related to vomiting Start taking the Reglan as soon as you wake up in the morning have some saltines Never let your stomach empty completely, the recommendation is that you eat something every hour like saltines, jello, or peanut butter, keep your stomach always partially full and will prevent you from being nauseous Try to drink as much as possible, avani diogo can be helpful Return earlier should you have new or worsening complaints Call your OB on Wednesday for recheck You do not have any protein in your urine which is reassuring, your blood pressure is 135/68, please have this rechecked with your doctor Referrals: RENE COOMBS, [employer] [Primary Care Provider] - Jossy Paniagua PA [Emergency Provider] - Medical Decision Making 22-year-old female presents with report of being 18 weeks with nausea, vomiting, and chest pain. Vomiting 15+ times a day Afebrile and nontoxic at time of presentation, leukocytosis consistent with likely Urinalysis not show evidence of proteinuria or acute abnormality, magnesium slightly low at 1.7, will send prescription for magnesium We will need blood pressure rechecked this week Encouraged to eat small frequent meals We will give Reglan for home We will start patient on Pepcid heart rate was 138 Patient is feeling marked improvement, she is able to tolerate p.o., her chest pain is resolved, I have very low suspicion that patient's chest pain is cardiac or pulmonary in nature, I suspect atypical chest pain in the presence of vomiting with hyperemesis gravidarum Return precautions reviewed and patient expressed understanding HPI General Date/Time Provider Initiated Documentation: 01/09/23 19:33. HPI Narrative: This 22-year-old female presents 18 weeks with report of nausea, vomiting, chest pain that started this morning. Has had nausea and vomiting for approximately 18 weeks states 15+ times a day. Denies any blood in vomitus. States she has a history of anxiety and intermittent chest pain states this feels similarly to her. She denies any pleuritic pain in fact she states when she takes a deep inspiration actually improves her symptoms. She is taking Zofran without relief in her symptoms. She denies any calf pain or swelling or history of coagulopathy. She denies exertional chest pain or shortness of breath. There is a family history of early cardiac disease and her mother, states that patient does not smoke, drink, regularly use illicit substances. Denies any vaginal bleeding or abdominal pain. History of preeclampsia with abruption during her last probation. Related Data Home Medications Medication Instructions Recorded Confirmed [id number] 400 mcg-om3 35 mg-dha 25 tab PO 10/07/22 12/09/22 mg-epa 5 mg-fish oil chewable tablet metoclopramide HCl 10 mg tablet 10 mg PO Q6H PRN #30 tabs 01/09/23 (Reglan) Previous Rx's Medication Instructions Recorded metoclopramide HCl 10 mg tablet 10 mg PO Q6H PRN #30 tabs 01/09/23 (Reglan) Allergies Allergy/AdvReac Type Severity Reaction Status Date / Time Latex, Natural Rubber Allergy Severe tongue Verified 12/09/22 10:29 gets itchy and get hard to breath. 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: 3 PFSH All Active Problems (Updated 01/09/23 @ 21:40 by YESSY Zapata) Chest pain (Acute) (Acute) Hyperemesis gravidarum (Acute) Vaginal discharge during in second trimester (Acute) Family history of thyroid disease (Acute) Back pain (Acute) S/P spinal fracture, chiropractic in the past History of anxiety (Acute) History of gestational hypertension (Acute) Obesity (Chronic) bmi 47 (Acute) UTI (urinary tract infection) (Acute) Medical History (Updated 01/09/23 @ 21:40 by YESSY Zapata) Depression UTI (urinary tract infection) Retained intrauterine contraceptive device (IUD) Vaginismus Pelvic pain Abdominal pain Dysuria Acute PID (pelvic inflammatory disease) Acute adjustment disorder with mixed anxiety and depressed mood History of spinal fracture playing football 2013 Surgical History (Updated 11/19/22 @ 15:41 by Vonda Benavides CNM) Status post repeat low transverse section S/P cholecystectomy Previous section 11/27/19 RC/S SROM 35+w EGA. Lupe Thakkar Family History (Updated 11/24/22 @ 10:59 by Vonda Benavides CNM) Mother Diabetes Heart disease CHF, age 55 Kidney failure Alcohol abuse Thyroid condition Maternal Grandmother Heart disease CHF, age 50s. Diabetes Kidney failure Sister Hemochromatosis Social History (Updated 11/24/22 @ 11:09 by Vonad Benavides CNM) Smoking/Tobacco Use Status: Former Tobacco Use Second Hand Exposure: No Smoking risk assessment performed?: Yes Alcohol Intake: former Year quit: not Details: quit with Drug use: Daily Substance use type: marijuana Household members: significant other and other Details: S-Austen. 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 Date GA/Weeks # Preg Succ Route Wgt Sex Labor Lgth Anesthesia Location [facility] 08/28/17 34 3260.195 g Male [place] 11/27/19 35 No 2415.011 g Male Amanda casanova Delivery Date: 08/28/17 Last Updated by: Vonda Benavides CNM 34 weeks, for placental abruption general anesthesia, IOL for severe preeclampsia. Labetalol PO after delivery x 4 weeks. [place] Delivery Date: 11/27/19 Last Updated by: Vonda Benavides CNM PPROM at 35 weeks, . Transferred to [facility] [place] with baby after delivery. Late post bleeding and readmitted to [facility] [place] for treatment. [place] Course Vital Signs Vital signs: Vital Signs Temperature 36.6 C 01/09/23 19:38 Pulse 57 L 01/09/23 19:38 Blood Pressure 168/103 H 01/09/23 19:38 Pulse Oximetry 98 01/09/23 19:38 Temperature 36.6 C 01/09/23 19:38 Temperature Source Temporal Artery Scan 01/09/23 19:38 Pulse 50 L 01/09/23 19:55 Pulse 55 L 01/09/23 20:00 Respiratory Rate 20 01/09/23 20:00 Respiratory Effort Normal 01/09/23 19:43 Blood Pressure 151/70 H 01/09/23 19:55 Blood Pressure Mean 98 01/09/23 19:55 Pulse Oximetry 98 01/09/23 20:00 Oxygen Delivery Method Room Air 01/09/23 19:38 Oxygen Flow Rate 0 01/09/23 19:38 Pain Level 5 01/09/23 19:43 Lab/Test Results Lab/Test Results: Laboratory Tests Range/Units 01/09/23 01/09/23 19:45 20:07 WBC (4.4-10.8) 10^3/uL 12.35 H RBC (3.93-5.22) 10^6/uL 4.40 Hgb (11.2-15.7) g/dL 13.3 Hct (36.0-46.0) % 38.5 MCV (80-95) fL 88 MCH (27.0-33.0) pg 30.2 MCHC (32.0-36.0) % 34.5 RDW (11.7-14.6) % 12.4 Plt Count (130-400) 10^3/uL 217 MPV (8.0-11.0) fL 11.0 Immature Gran % 0.2 Neutrophils % 73.7 Lymphocytes % 21.4 Monocytes % 4.1 Eosinophils % 0.4 Basophils % 0.2 Nucleated RBC % (0.0-0.3) % 0.0 Absolute Neutrophils (1.2-6.7) 10^3/uL 9.10 H Absolute Lymphocytes (1.2-3.4) 10^3/uL 2.64 Absolute Monocytes (0.1-0.8) 10^3/uL 0.51 Absolute Eosinophils (0.0-0.7) 10^3/uL 0.05 Absolute Basophils (0.0-0.2) 10^3/uL 0.02 Sodium (136-145) mmol/L 135 L Potassium (3.5-5.1) mmol/L 3.5 Chloride (98-107) mmol/L 103 Carbon Dioxide (21.0-32.0) mmol/L 24.8 Anion Gap (3-11) mmol/L 7.2 BUN (7-18) mg/dL 4 L Creatinine (0.55-1.02) mg/dL 0.6 Est GFR (CKD-EPI 2020) (mL/min/1.73m2) 129.27 Glucose (74-106) mg/dL 99 Calcium (8.5-10.1) mg/dL 9.1 Magnesium (1.8-2.4) mg/dL 1.7 L Total Bilirubin (0.2-1.0) mg/dL 0.4 AST (15-37) U/L 31 ALT (14-59) U/L 22 Alkaline Phosphatase (46-116) U/L 58 Troponin I (<or=60) ng/L < 50 Total Protein (6.4-8.2) g/dL 7.4 Albumin (3.4-5.0) g/dL 3.1 L Lipase (16-77) U/L 51 Urine Color (Yellow) Yellow Urine Clarity (Clear) Clear Urine pH (5-8) 6.0 Ur Specific [place] (1.005-1.025) 1.010 Urine Protein (Negative) mg/dL Negative Urine Ketones (Negative) mg/dL Negative Urine Blood (Negative) Negative Urine Nitrite (Negative) Negative Urine Bilirubin (Negative) Negative Urine Urobilinogen (Up to 0.2) mg/dL 0.2 Ur Leukocyte Esterase (Negative) Negative Urine Glucose (Negative) mg/dL Negative
[2023-01-09 21:09] LABS: TSH (W/Ref FT4) 2.72 uIU/mL (0.36-3.74)
== END 2023-01-09 22:26 | disposition home or self-care (01) ==
PROVIDERS: Emergency Provider Physician Assistant; PCP Nurse Practitioner Family
DX: O21.0 Mild hyperemesis gravidarum (principal); R07.9 Chest pain, unspecified; Z3A.18 18 weeks gestation of pregnancy
CPT/HCPCS: 36415; 80053; 83690; 93005; 96361; 96365; 96375; 99284; 81003; 83735; 84443; 84484; 85025; 93010; J0780; J1200

== ENCOUNTER 2023-02-24 14:52 | Outpatient (REF) | payer MEDICAID, SELFPAY ==
[2023-02-24 15:20] LABS: ROM Plus Negative
== END 2023-02-24 14:53 | disposition home or self-care (01) ==
LOC: LBN 14:52
PROVIDERS: PCP Nurse Practitioner Family; Visit Provider Obstetrics & Gynecology Gynecology
DX: N89.8 Other specified noninflammatory disorders of vagina (principal); O26.892 Other specified pregnancy related conditions, second trimester
CPT/HCPCS: 84112; 87480; 87510; 87660

== ENCOUNTER 2023-03-01 16:05 | Outpatient (CLI) | payer MEDICAID, SELFPAY ==
[2023-03-01 18:28] VITALS: BP 129/68; PULSE 72
[2023-03-01 18:35] VITALS: BP 129/68; PULSE 72; TEMP 36.8
== END 2023-03-01 19:45 | disposition home or self-care (01) ==
LOC: BCD 16:06 → OBS 16:11
PROVIDERS: PCP Nurse Practitioner Family; Visit Provider Obstetrics & Gynecology
DX: O47.03 False labor before 37 completed weeks of gestation, third trimester (principal); Z3A.35 35 weeks gestation of pregnancy
CPT/HCPCS: 59025

== ENCOUNTER 2023-03-15 04:42 | Outpatient (CLI) | payer MEDICAID, SELFPAY ==
[2023-03-15 11:48] LABS: HCT 39.1 % (36.0-46.0); HGB 13.5 g/dL (11.2-15.7); MCH 31.1 pg (27.0-33.0); MCHC 34.5 % (32.0-36.0); MCV 90 fL (80-95); MPV 11.3 fL (8.0-11.0); Platelet Count 216 10^3/uL (130-400); RBC 4.34 10^6/uL (3.93-5.22); RDW-SD 42.5 fL
[2023-03-15 12:14] LABS: Glucose,1 Hr (Glucola) 91 mg/dL (80-140)
[2023-03-15 21:24] LABS: C Diff PCR Negative (Negative)
[2023-03-16 22:45] LABS: Campylobacter PCR Negative (Negative); Salmonella PCR Negative (Negative); Shiga Toxin PCR Negative (Negative); Shigella/Enteroinvasive Ecoli Negative (Negative)
== END 2023-03-15 04:43 | disposition home or self-care (01) ==
LOC: LBO 04:42
PROVIDERS: Obstetrics & Gynecology Gynecology; PCP Nurse Practitioner Family; Visit Provider Obstetrics & Gynecology
DX: Z34.93 Encounter for supervision of normal pregnancy, unspecified, third trimester (principal); R19.7 Diarrhea, unspecified
CPT/HCPCS: 36415; 82950; 85027; 87493; 87505